=== PATIENT | male | born 1950 | race Caucasian/White ===

== ENCOUNTER 2023-10-20 08:09 | Outpatient (REF) | payer MEDICARE, SELFPAY ==
[2023-10-20 13:23] LABS: MANUAL DIFF FLAG NO
[2023-10-20 13:31] LABS: Basophils Absolute Auto 0.1 X10*3/uL (0.0-0.2); Basophils Percent Auto 1.1 % (0-2); Eosinophils Absolute Auto 0.2 X10*3/uL (0.0-0.4); Hematocrit 43.5 % (42.0-52.0); Hemoglobin 14.8 g/dl (14.0-18.0); Imm Gran Abs Auto 0.01 X10*3/uL (0.00-0.03); Imm Gran Pct Auto 0.2 % (0.0-0.4); Lymphocytes Absolute Auto 1.4 X10*3/uL (1.2-4.9); Lymphocytes Percent Auto 24.5 % (20-40); Mean Corpuscular Hemoglobin 33.5 pg (27.0-33.0); Mean Corpuscular Volume 98.4 fL (80.0-98.0); Mean Platelet Volume 9.9 fL (9.4-12.4); Monocytes Absolute Auto 0.6 X10*3/uL (0.1-1.2); Monocytes Percent Auto 11.3 % (2-11); Neutrophils Absolute Auto 3.4 x10*3/uL (2.0-8.3); Neutrophils Percent Auto 59.9 % (45-73); Platelet Count 185 X10*3/uL (160-400); Red Blood Count 4.42 X10*6/uL (4.60-5.80); Red Cell Distribution Width 12.6 % (11.0-16.0); White Blood Count 5.7 X10*3/uL (4.8-10.8)
[2023-10-20 14:04] LABS: Alanine Aminotransferase 30 U/L (0-40); Albumin Level 4.2 g/dL (3.5-5.0); Alkaline Phosphatase 72 U/L (39-117); Anion Gap 11 (12-20); Aspartate Amino Transferase 31 U/L (5-37); Bilirubin Total 0.5 mg/dL (0.0-1.0); Blood Urea Nitrogen 12 mg/dL (9-16); Calcium 8.9 mg/dL (8.4-10.2); Carbon Dioxide 28 mmol/L (22-29); Chloride 104 mmol/L (96-108); Cholesterol 97 mg/dL (<200); Estimated Glomerular Filt Rate > 60; Glucose Random 92 mg/dL (60-115); HDL Cholesterol 39 mg/dL (>40); LDL Cholesterol Calculated 51 mg/dL (<100); Potassium 5.1 mmol/L (3.3-5.1); Sodium 138 mmol/L (135-145); Total Protein 7.1 g/dL (6.5-8.0); Triglycerides 38 mg/dL (<150)
[2023-10-20 14:15] LABS: Prostate Specific Antigen 2.69 ng/mL (<0.05-4.0)
== END 2023-10-20 08:10 | disposition home or self-care (01) ==
LOC: HO.MANLDS 08:09
PROVIDERS: Visit Provider Physician Assistant
DX: E78.2 Mixed hyperlipidemia (principal); Z12.5 Encounter for screening for malignant neoplasm of prostate
CPT/HCPCS: 36415; 80053; 80061; 84153; 85025

== ENCOUNTER 2024-04-08 07:33 | Outpatient (REF) | payer MEDICARE, SELFPAY ==
[2024-04-08 13:40] LABS: Cholesterol 125 mg/dL (<200); HDL Cholesterol 34 mg/dL (>40); LDL Cholesterol Calculated 69 mg/dL (<100); Triglycerides 113 mg/dL (<150)
== END 2024-04-08 07:34 | disposition home or self-care (01) ==
LOC: HO.MANLDS 07:33
PROVIDERS: PCP Internal Medicine; Visit Provider Internal Medicine
DX: I25.10 Atherosclerotic heart disease of native coronary artery without angina pectoris (principal)
CPT/HCPCS: 36415; 80061

== ENCOUNTER 2024-10-02 09:22 | Outpatient (REF) | payer MEDICARE, SELFPAY ==
--- OUTSIDE RECORDS SUMMARY | 2024-10-02 09:50 | XMS_ITS ---
Author Name [facility] Address [address] [place] [address] Care Team Providers Care Software Licensing Analyst Name Role Phone RACHELE RODRIGUEZ Primary Care Provider Unavailab le Insurance Providers: All historical and current Section Date Range: From patient's date of to the date document was created. This section includes the names of all active insurance providers for the patient. Insurance Provider Type of Coverage Plan Name Start of Policy Coverage End of Policy Coverage Group Number Member ID Insurance Provider's Telephone Number Policy Gutierrez's Name Patient's Relationship to Policy Gutierrez MADALYN [facility] (WNR) MEDICARE ADVANTAGE MCR ([facility]) Aug 28, 2018 [id number] GERSON BRIGGS PATIENT [facility] (WNR) MEDICARE ADVANTAGE MCR (WNR) Aug 28, 2018 [id number] GERSON BRIGGS PATIENT Selected Encounter This section includes the information on record at [place] for the Encounter. Date/Time Encounter Type Encounter Description Reason Provider Source May 22, 2024 10:00 AM COMPRE OPH EXAM EST PT 1/> OPTOMETRY ICD-10-CM H34.212 Partial retinal artery occlusion, left eye MERDILSHAD,MARLIN B IHE Encounter Template Text not used by VA Assessments - Encounter Diagnoses This section includes the primary and secondary diagnoses documented for the Encounter. Date/Time Primary/Secondary Diagnosis Diagnosis Name Provider Source May 22, 2024 02:30 PM PRIMARY Partial retinal artery occlusion, left eye MARLIN MARIN [facility] May 22, 2024 02:30 PM SECONDARY Presence of intraocular lens [facility] May 22, 2024 02:30 PM SECONDARY Regular astigmatism, bilateral MARLIN MARIN [facility] Plan of Treatment: Future Appointments (+ 6 months) and Future Tests (+/- 45 days) The Plan of Treatment section includes future care activities for the [facility] This section includes future appointments and future orders which are active, pending or scheduled. Future Appointments This section includes appointments that were scheduled to occur 6 months from the date of the Encounter, up to a maximum of 20 appointments. The data comes from all [place] treatment facilities. Appointment Date/Time Appointment Type Appointme nt Facility Name Jun 25, 2024 09:30 AM AMBULATORY - MEDICINE [facility] Jul 31, 2024 08:00 AM AMBULATORY - MEDICINE [facility] Social History: Smoking Status (Most current) and Tobacco Use (All prior to encounter date) This section includes the most current, and the historical, smoking and tobacco- related health factors from the VA facility where the Encounter took place. Current Smoking Status This section includes the most current smoking, or tobacco-related health factor, from the VA facility where the Encounter took place. Date/Time Current Smoking Status Comment Facility Sep 19, 2017 10:41 AM QUIT TOBACCO USE > 7 YEARS AGO quit > 20 yrs ago [facility] Encounter Notes: All associated encounter notes This section contains the clinical notes associated to the Encounter. Date/Time Encounter Note(s) Provider Source May 22, 2024 07:15 AM OPTOMETRY NOTE: LOCAL TITLE: OPTOMETRY NOTE STANDARD TITLE: OPTOMETRY NOTE DATE OF NOTE: MAY 22, 2024@07:15 ENTRY DATE: MAY 22, 2024@07:15:30 AUTHOR: SRIDEVI GRIMM COSIGNER: MARLIN MARIN URGENCY: STATUS: COMPLETED OPTOMETRY NOTE Has ADDENDA Active problems - Computerized Problem List is the source for the followin. GERD - Gastro-Esophageal Reflux Disease ([facility] [id number]) 2. Family history of malignant melanoma 3. Nephrolithiasis 4. Obstructive sleep apnea syndrome 5. Adult screening status 6. Hyperlipidemia 7. HTN - Hypertension ([facility] [id number]) 8. Arthralgia of hip 9. Cervicalgia 10. Arthralgia of the hand 11. Old myocardial infarction 12. Chronic back pain 13. Posttraumatic stress disorder 14. History of artificial joint 15. Under care of multiple providers 16. Patient requires hospitalization 17. History of surgery 18. Rosacea Active Outpatient Medications (including Supplies): Active Outpatient Medications Status 1) ATORVASTATIN CALCIUM 80MG TAB TAKE ONE TABLET BY ACTIVE MOUTH ONCE DAILY 2) EZETIMIBE 10MG TAB TAKE ONE TABLET BY MOUTH ONCE ACTIVE DAILY TO LOWER CHOLESTEROL 3) KETOROLAC TROMETHAMINE 0.5% OPH SOLN INSTILL 1 DROP ACTIVE INTO THE AFFECTED EYE(S) THREE TIMES A DAY START 2 DAYS PRIOR TO SURGERY. 4) METOPROLOL SUCCINATE 100MG SA TAB TAKE ONE TABLET BY ACTIVE MOUTH ONCE DAILY FOR BLOOD PRESSURE/HEART 5) VALSARTAN 320MG TAB TAKE ONE TABLET BY MOUTH EVERY ACTIVE MORNING Allergies: PENICILLIN, PLAVIX All medications including those prescribed by outside VA's, community providers, and all OTC meds were reviewed and reconciled with patient to the best of their abilities. 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 Trace ERM OU 3. RE OU Ocular Medications: None (-) Pain: (-) SMITH: (-) Diplopia: (-) Flashes: (-) Floaters: (-) Amaurosis Fugax/Tia's: (-) Eye Injury: (+) Eye Surgery: CE with PCIOL OU (-) TBI FOHx: (-) Glaucoma/ARMD/Blindness VITALS (most recent, as listed in the electronic record): B/P: 158/83 (05/17/2023 14:13) Pulse: 71 (05/17/2023 14:13) Temperature: 98 F [36.7 C] (05/17/2023 14:13) Weight: 197.2 lb [89.45 kg] (05/17/2023 14:13) Height: 74 in [188.0 cm] (05/17/2023 14:14) BMI: BMI: 25.4 PERTINENT LABS: HEMOGLOBIN A1C TREND Collection DT Spec HGBA1c 05/12/2023 08:00 BLOOD 5.3 05/25/2021 08:23 BLOOD 5.2 05/06/2020 10:07 BLOOD 5.6 03/14/2019 09:25 BLOOD 5.4 (+) Smoker/Length of Time/PPD: smoked for 15yrs, quit when he was 29 Current Rx after CE OD: -1.00-0.25 x160 OS: Uneeda-0.75 x085 Add: +1.50 DVA ( )sc ( x )cc - phoropter OD: 20/20-2 OS: 20/20 Pupils: PERRL (-)APD EOMs: SAFE OU, (-)Pain/Diplopia CVF (facial, peripheral): FTFC OU Subjective Refraction: OD: -0.75-0.25 x160 20/20 OS: Uneeda-0.75 x085 20/20 Add: +1.50 20/20 All the above performed by student, reviewed by attending Anterior segment: Performed by student, repeated by attending * Lids: Dermatochalasis OU Conj: white and quiet OU Cornea: clear AC: D&Q OU Angles: 4x4 OU Iris: flat and clear Lens: PCIOL OU (undilated view) Tonometry: Performed by student, reviewed by attending * [x ] GAT [ ] iCare OD 15 mmHg OS 15 mmHg Time: 10:15am Pt deferred dilation today Fundus exam: Dilated: Non dilated:xxxxx Dilating Drops: 1GTT 1 % Tropicamide OU & 1GTT 2.5% Phenylephrine OU (Pt. ed. on side effects, dilation warning given and verbal consent obtained) Patient advised not to drive if they feel they have any symptoms which could affect their ability to drive safely. Patient advised not to engage in any activities which could put themselves or others at risk if they feel they have any symptoms which could affect their ability to perform those activities safely. Performed by student, repeated by attending * Vit: Clear OU C/D: 0.35 OU pink & healthy rim tissue Macula: flat and clear with trace ERM OU PPole: OD: clear OS: (+) Hollenhorst plaque at sup temp bifurcation (+) 2 intermediate drusens in PP and scattered along the arcade A/V: 2/3 Vessels: normal caliber OU Periph: Limited undilated view OU Assessment/Plan: 1. Hollenhorst plaque OS - Previously noted in 07/18/2023 - Pt denied amaurosis fugax and PCP was informed at the 1st occurance and he already had the carotid duplex done after in the past without any concerns reported by patient. - Pt. ed. on findings and told pt to call us if experiences any dimming or black-out vision in either eye - Monitor 2. Pseudophakia OU - Limited view to see if PCIOL was well-centered or clear due to small pupils on undilated exam - Pt. ed. on findings - Monitor 3.Regular astigmatism OU - Pt. ed. on todays findings - No glasses ordered today - Monitor Return to Clinic 1yr or earlier PRN for CEE /es/ SRIDEVI ISI GRIMM OPTOMETRY STUDENT Signed: 05/22/2024 12:19 /es/ MARLIN MARIN OD Rn Internal Medicine Cosigned: 05/22/2024 14:30 05/22/2024 ADDENDUM STATUS: COMPLETED The optometry internal revenue service agent participated in this exam, I saw this [place] in conjunction with the optometry student. The entrance tests and refraction were performed by the student and reviewed by me. I personally met with the patient, confirmed the history, complaints and the student's findings, and performed slit lamp and fundus evaluation as indicated. I reviewed and agree with the stated findings, assessment and plan. I have added/edited the documentation to reflect my exam findings and changes to the assessment and plan. patient s/p CE OU and pleased with results. Still has a hollenhorst plaque superior arcade OS as bifurcation - stable to last description without signs of occlusion or ischemia. Pt ed on findings. He reports telling his community professional housing consultant about it who did not feel additional testing was indicated. Pt ed on amaurosis fugax and to seek care immediately if occur. patient offered and declined printed medication list Medication Reconciliation: Outpatient: Has the patient been taking medications as documented in the EMLR? YES: The patient has been taking medications as documented in the EMLR. Essential Medication List for Review used to complete this medication reconciliation. INCLUDED IN THIS LIST: Alphabetical list of active outpatient prescriptions dispensed from this VA (local) and dispensed from another VA or DoD facility (remote) as well as inpatient orders (local, pending and active), local clinic medications, locally documented non-VA medications, and local prescriptions that have or been discontinued in the past 90 days. - All changes in medications, including all non-VA/Herbal/OTC medications were entered into CPRS. - If there were any medications the patient should no longer take, they were discontinued. - The patient/caregiver was instructed to update this list, discard old lists, and take this list to the next appointment, whether with a VA or non-VA provider. JLV Link Data on this list may not be complete. Please check JLV. Allergies/ADRs (Tool #5) FACILITY ALLERGY/ADR -------- No Remote Allergy/ADR Data available for this patient [facility] PENICILLIN [facility] PLAVIX Med Recon Wu (Tool #1) INCLUDED IN THIS LIST: Alphabetical list of active outpatient prescriptions dispensed from this [place] (local) and dispensed from another [place] or [facility] facility (remote) as well as inpatient orders (local pending and active), local clinic medications, locally documented non-VA medications, and local prescriptions that have or been discontinued in the past 90 days. Non-VA Meds Last Documented On: Sep 19, 2017 NOTE The display of VA prescriptions dispensed from another [place] or [facility] facility (remote) is limited to active outpatient prescription entries matched to National Drug File at the originating site and may not include some items such as investigational drugs, compounds, etc. NOT INCLUDED IN THIS LIST: Medications self-entered by the patient into personal health records (i.e. [facility]) are NOT included in this list. Non-VA medications documented outside this [place], remote inpatient orders (regardless of status) and remote clinic medications are NOT included in this list. The patient and provider must always discuss medications the patient is taking, regardless of where the medication was dispensed or obtained. OUTPT ATORVASTATIN CALCIUM 80MG TAB (Status = ) TAKE ONE TABLET BY MOUTH ONCE DAILY Rx# [id number] Last Released: 02/01/24 Qty/Days Supply: Rx Expiration Date: 03/22/24 Refills Remainin OUTPT ATORVASTATIN CALCIUM 80MG TAB (Status = Active) TAKE ONE TABLET BY MOUTH ONCE DAILY Rx# [id number] Last Released: 04/30/24 Qty/Days Supply: Rx Expiration Date: 06/25/24 Refills Remainin OUTPT EZETIMIBE 10MG TAB (Status = Active) TAKE ONE TABLET BY MOUTH ONCE DAILY TO LOWER CHOLESTEROL Rx# [id number] Last Released: 11/02/23 Qty/Days Supply: Rx Expiration Date: 10/31/24 Refills Remainin Indication: FOR HIGH CHOLESTEROL OUTPT KETOROLAC TROMETHAMINE 0.5% OPH SOLN (Status = Active) INSTILL 1 DROP INTO THE AFFECTED EYE(S) THREE TIMES A DAY START 2 DAYS PRIOR TO SURGERY. Rx# [id number] Last Released: 01/26/24 Qty/Days Supply: 06/26 Rx Expiration Date: 11/02/24 Refills Remainin OUTPT METOPROLOL SUCCINATE 100MG SA TAB (Status = ) TAKE ONE TABLET BY MOUTH ONCE DAILY FOR BLOOD PRESSURE/HEART Rx# [id number] Last Released: 01/26/24 Qty/Days Supply: Rx Expiration Date: 03/22/24 Refills Remainin OUTPT METOPROLOL SUCCINATE 100MG SA TAB (Status = Active) TAKE ONE TABLET BY MOUTH ONCE DAILY FOR BLOOD PRESSURE/HEART Rx# [id number] Last Released: 04/16/24 Qty/Days Supply: Rx Expiration Date: 06/25/24 Refills Remainin OUTPT SILDENAFIL CITRATE 100MG TAB (Status = ) TAKE ONE TABLET BY MOUTH ONCE DAILY NEEDED FOR ERECTILE DYSFUNCTION TAKE 1 HOUR PRIOR TO SEXUAL ACTIVITY Rx# [id number] Last Released: 03/25/24 Qty/Days Supply: 02/24 Rx Expiration Date: 05/17/24 Refills Remainin Indication: FOR ERECTILE DYSFUNCTION OUTPT VALSARTAN 320MG TAB (Status = ) TAKE ONE TABLET BY MOUTH EVERY MORNING Rx# [id number] Last Released: 12/28/23 Qty/Days Supply: Rx Expiration Date: 03/22/24 Refills Remainin OUTPT VALSARTAN 320MG TAB (Status = Active) TAKE ONE TABLET BY MOUTH EVERY MORNING Rx# [id number] Last Released: 03/28/24 Qty/Days Supply: Rx Expiration Date: 06/25/24 Refills Remainin SUPPLIES /yumi/ MARLIN MARIN OD Rn Internal Medicine Signed: 05/22/2024 14:33 SRIDEVI GRIMM CNTRL [facility]
--- OUTSIDE RECORDS SUMMARY | 2024-10-02 09:50 | XMS_ITS | Continuity of Care Document ---
Author Name [facility] Organization [facility] Care Team Providers Care Equestrian Trainer Name Role Phone [facility] Unavailable Unavailable Problems Combined list of problems from Department of Defense and Veterans Affairs facilities. It does not include entries that were removed or entered in error. Problem Status Onset Date Problem Type Date of Resolution Comments Source Adult screening status Active Condition Aug 07, 2019 Entered By: DARRYL ALVARENGA Comment: Colonoscopy December 2018; repeat in 10 years [facility] Arthralgia of hip Active Condition No 2017 Entered By: DARRYL ALVARENGA Comment: s/p L THR Dr. Ramey, [facility] 07/18/18 [place] [facility] [place] [facility] Arthralgia of the hand Active Condition May 01, 2018 Entered By: DARRYL ALVARENGA Comment: pending x-rays [facility] Cervicalgia Active Condition May 01, 2018 Entered By: DARRYL ALVARENGA Comment: started 04/2018 on gabapentin and flexeril (per Rheum rec) [facility] Chronic back pain Active Condition No 2019 Entered By: DARRYL ALVARENGA Comment: pending imaging / PT eval (Jun 2020) [facility] Family history of malignant melanoma Active Condition Jul 15 020 Entered By: DARRYL ALVARENGA Comment: sister, passed with wide metastatic diseaseJul 15, 2020 Entered By: DARRYL ALVARENGA Comment: referred for skin survey [facility] GERD - Gastro-Esophageal Reflux Disease (SCT [id number]) Active Condition Oct 13, 2020 Entered By: DARRYL ALVARENGA Comment: followed by [facility] Lane GI [facility] History of artificial joint Active Condition Omari 30, 201 8 Entered By: NAINA MYERS Comment: R hip prothesis [facility] History of surgery Active Condition J an 2017 Entered By: NABILA HERNANDEZ Comment: cardiac- stent ( distal RCA) [facility] HTN - Hypertension (SCT [id number]) Active Condition Jun 28, 2021 Entered By: DARRYL ALVARENGA Comment: Echo 04/2021 Normal LV, EF 45-50%; mild global hypokinesis [facility] Hyperlipidemia Active Condition [facility] Nephrolithiasis Active Condition [facility] [place] Obstructive sleep apnea syndrome Active Condition Jul 15, 2020 Entered By: DARRYL ALVARENGA Comment: on CPAP [facility] Old myocardial infarction Active Condition January 18, 2019 Entered By: DARRYL ALVARENGA Comment: echo 05/17/18 ([facility]): ef 45-50%, basal lateral akinesis, trace AR [facility] Patient requires hospitalization Active Condition Sep 19, 2017 Entered By: NABILA HERNANDEZ Comment: [facility]- 2006 ( cardiac 04/2007) [facility] Posttraumatic stress disorder Active Condition [facility] Rosacea Active Condition [facility] Under care of multiple providers Active Condition Sep 19 018 Entered By: NABILA HERNANDEZ Comment: non [place] - DR KENT ( transfer from dr Allan Martinez 2017 Entered By: NABILA HERNANDEZ Comment: 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 Francisco Watts, RheumatologySe 2017 Entered By: DARRYL ALVARENGA Comment: GHULAM Mack (ENVIRONMENTAL SYSTEMS COORDINATOR) for hipSep 2017 Entered By: DARRYL ALVARENGA Comment: GHULAM Melendez for cervicalgia [facility] Diagnosis: ICD-10-CM Z12.11 Encounter for screening for malignant neoplasm of colon Active Diagnosis [place] Diagnosis: ICD-10-CM H34.212 Partial retinal artery occlusion, left eye Active Diagnosis [facility] Diagnosis: ICD-10-CM G47.33 Obstructive sleep apnea (adult) (pediatric) Active Diagnosis [facility] [place] [facility] Diagnosis: ICD-10-CM G47.39 Other sleep apnea Active Diagnosis [facility] Diagnosis: ICD-10-CM Z46.0 Encounter for fit/adjst of spectacles and contact lenses Active Diagnosis [facility] Diagnosis: ICD-10-CM Z46.1 Encounter for fitting and adjustment of hearing aid Active Diagnosis [facility] Diagnosis: ICD-10-CM H25.813 Combined forms of age-related cataract, bilateral Active Diagnosis [facility] Diagnosis: ICD-10-CM H90.3 Sensorineural hearing loss, bilateral Active Diagnosis [facility] Diagnosis: ICD-10-CM I10 Essential (primary) hypertension Active Diagnosis [place] Medications Combined list of outpatient medications from Department of Defense and Veterans Affairs facilities.Medications provided include 1) outpatient medications from the last 15 months, and 2) patient-reported medications. Medication Details Route Status Patient Instructions Prescription Expires Prescription Number Last Dispense Date Ordering Provider Order Date Order Qty Source ATORVASTATI N [place] 80MG TAB TAKE ONE TABLET BY MOUTH ONCE DAILY ORAL 09/29/2024 [id number] KELLEY CASTILLO 2023 90 [facility] [place] ATORVASTATI N CA 80MG TAB TAKE ONE TABLET BY MOUTH ONCE DAILY ORAL 06/25/2024 [id number] KELLEY CASTILLO 2023 90 [facility] [place] ATORVASTATI N CA 80MG TAB TAKE ONE TABLET BY MOUTH ONCE DAILY ORAL 03/22/2024 [id number] MATEO SCHOFIELD 2022 90 [facility] [place] EZETIMIBE 10MG TAB TAKE ONE TABLET BY MOUTH ONCE DAILY TO LOWER CHOLESTE ROL ORAL ACTIVE 10/31/2024 [id number] LYLE, APOLINARI O 2023 90 [place] EZETIMIBE 10MG TAB TAKE ONE TABLET BY MOUTH ONCE DAILY TO LOWER CHOLESTE ROL ORAL DISCONT INUED 05/17/2024 [id number] LYLE, APOLINARI O 2022 90 [place] KETOROLAC TROMETHAMIN E 0.5% SOLN,OPH INSTILL 1 DROP INTO THE AFFECTED EYE(S) THREE TIMES A DAY START 2 DAYS PRIOR TO SURGERY. OPHTHA LMIC ACTIVE 11/02/2024 [id number] HORACE CHURCH 2023 10 [place] METOPROLOL SUCCINATE 100MG TAB,SA TAKE ONE TABLET BY MOUTH ONCE DAILY FOR BLOOD PRESSURE /HEART ORAL ACTIVE 07/02/2025 [id number] KELLEY CASTILLO 2023 90 [place] METOPROLOL SUCCINATE 100MG TAB,SA TAKE ONE TABLET BY MOUTH ONCE DAILY FOR BLOOD PRESSURE /HEART ORAL 06/25/2024 [id number] KELLEY CASTILLO 2023 90 [place] METOPROLOL SUCCINATE 100MG TAB,SA TAKE ONE TABLET BY MOUTH ONCE DAILY FOR BLOOD PRESSURE /HEART ORAL 03/22/2024 [id number] MATEO SCHOFIELD 2022 90 [place] SILDENAFIL CITRATE 100MG TAB TAKE ONE TABLET BY MOUTH ONCE DAILY NEEDED FOR ERECTILE DYSFUNCT ION TAKE 1 HOUR PRIOR TO SEXUAL ACTIVITY ORAL 05/17/2024 [id number] LYLEDEANLINARI O 2022 6 [place] VALSARTAN 320MG TAB TAKE ONE TABLET BY MOUTH ONCE DAILY ORAL SUSPEND ED 09/28/2025 [id number] KELLEY CASTILLO 2024 90 [facility] (631[facility]) VALSARTAN 320MG TAB TAKE ONE TABLET BY MOUTH ONCE DAILY ORAL DISCONT INUED 09/29/2024 [id number] KELLEY CASTILLO 2023 90 [place] VALSARTAN 320MG TAB TAKE ONE TABLET BY MOUTH EVERY MORNING ORAL 06/25/2024 [id number] KELLEY CASTILLO 2023 90 [facility] [place] VALSARTAN 320MG TAB TAKE ONE TABLET BY MOUTH EVERY MORNING ORAL 03/22/2024 [id number] MATEO SCHOFIELD 2022 90 [facility] [place] Allergies, Adverse Reactions, Alerts Combined list of allergies from Department of Defense and Veterans Affairs facilities. It does not include entries that were removed or entered in error. Substance Category Reaction Severity Reaction type Status Date Reported Comments Source PENICILLIN Propensity to adverse reactions to drug (finding) [facility] Propensity to adverse reactions to drug (finding) Urticaria active 8 [facility] [place] [facility] Immunizations Combined list of available immunizations from the Department of Defense and Veterans Affairs facilities. Immunization Series Date Given Administered By Site Reaction Lot Number CVX Code Drug Butadiene Converter Utility Operator Status Comments Source INFLUENZA, HIGH-DOSE, QUADRIVALENT 2022 RAZ MORALES RIGHT DELTO ID [id number] A 197 complet ed [facility] [place] COVID-19 (MODERNA), MRNA, LNP-S, BIVALENT BOOSTER, PF, 50 MCG/0.5 ML OR 25MCG/0.25 ML DOSE 1 2021 229 complet ed MOD; [id number]; 3 [facility] [place] INFLUENZA VACCINE, QUADRIVALENT, ADJUVANTED 2021 205 complet ed [facility] [place] COVID-19 (MODERNA), MRNA, LNP-S, PF, 100 MCG OR 50 MCG DOSE 3 2020 207 complet ed MOD; [id number]; 2 [facility] [place] INFLUENZA VACCINE, QUADRIVALENT, ADJUVANTED 2020 205 complet ed [place] TDAP 2020 115 complet ed [facility] [place] COVID-19 (MODERNA), MRNA, LNP-S, PF, 100 MCG/0.5 ML DOSE 2 2020 207 complet ed MOD; [id number]; 1 [place] COVID-19 (MODERNA), MRNA, LNP-S, PF, 100 MCG/0.5 ML DOSE 1 2020 207 complet ed MOD; [id number]; 1 [place] ZOSTER RECOMBINANT 2 2019 187 complet ed [place] ZOSTER RECOMBINANT 1 2019 187 complet ed [facility] Pharmacy Rx Receipts received. [facility] Rx: [id number] prescribe dawson Fuchs an [facility] INFLUENZA, UNSPECIFIED FORMULATION 2019 88 complet ed [facility] INFLUENZA, INJECTABLE, QUADRIVALENT, PRESERVATIVE FREE 2018 150 complet ed Site: Left Deltoid [place] INFLUENZA, INJECTABLE, QUADRIVALENT 2017 158 complet ed Site: Left Deltoid [place] PNEUMOCOCCAL POLYSACCHARID E PPV23 2017 33 complet ed [place] INFLUENZA, SEASONAL, INJECTABLE 2016 141 complet ed [facility] [place] [facility] [facility] PNEUMOCOCCAL CONJUGATE PCV 13 2014 133 complet ed [facility] [address] [facility] [place] [facility] Results Combined list of recent chemistry, hematology and other laboratory results from Department of Defense and Veterans Affairs, ranging from 15 months to all on record, depending upon the facility. Order Name Results Value Reference Range Date Interpretation Specimen Comments Source LIPID PANEL FASTING CHOLESTERO L [MASS/VOLU ME] IN SERUM OR PLASMA 141 mg/dL 05/12 Specimen Type: SERUM No comment entered. Ordering Provider: ARCADIO ALVARENGA Report Released Date/Time: May 08, 2023 08:52 AM Reporting Lab: [facility] [place] [facility] [address] [address] Performing Lab: [facility] Fortress TechnologiesCHUSEEDGEWO[facility] STATE [facility] [address] [address] [facility] [place] [facility] LIPID PANEL FASTING TRIGLYCERI DE [MASS/VOLU ME] IN SERUM OR PLASMA 107 mg/dL 0 - 150 05/12 Specimen Type: SERUM No comment entered. Ordering Provider: LYLE,AP OLINARIO Report Released Date/Time: May 08, 2023 08:52 AM Reporting Lab: [facility] [place] [facility] [address] [address] Performing Lab: [facility] [place] [facility] [address] [address] [facility] [place] [facility] LIPID PANEL FASTING CHOLESTERO L IN LDL [MASS/VOLU ME] IN SERUM OR PLASMA BY CALCLUIS FELIPE N 84 mg/dL 0 - 129 05/12 Specimen Type: SERUM No comment entered. Ordering Provider: ARCADIO ALVARENGA Report Released Date/Time: May 08, 2023 08:52 AM Reporting Lab: [facility] [place] [facility] [address] [address] Performing Lab: [facility] [place] [facility] [address] [address] [place] [facility] [place] [facility] LIPID PANEL FASTING CHOLESTERO L.TOTAL/CH OLESTEROL IN HDL [MASS RATIO] IN SERUM OR PLASMA 3.9 05/12 Specimen Type: SERUM No comment entered. Ordering Provider: ARCADIO ALVARENGA Report Released Date/Time: May 08, 2023 08:52 AM Reporting Lab: [facility] [place] [facility] [address] [address] Performing Lab: [facility] [place] [facility] [address] [address] [facility] [place] [facility] LIPID PANEL FASTING CHOLESTERO L IN HDL [MASS/VOLU ME] IN SERUM OR PLASMA 36 mg/dL 40 - 60 05/12 L Specimen Type: SERUM No comment entered. Ordering Provider: ARCADIO ALVARENGA Report Released Date/Time: May 08, 2023 08:52 AM Reporting Lab: [facility] [place] [facility] [address] [address] Performing Lab: [facility] [place] [facility] [address] [address] [facility] [place] [facility] LIVER FUNCTION PROTEIN [MASS/VOLU ME] IN SERUM OR PLASMA 7.1 g/dL 6.0 - 8.3 05/12 Specimen Type: SERUM No comment entered. Ordering Provider: ARCADIO ALVARENGA Report Released Date/Time: May 08, 2023 08:52 AM Reporting Lab: [facility] [place] [facility] [address] [address] Performing Lab: [place] [facility] [address] [address] [facility]ENUSE [facility] LIVER FUNCTION ALBUMIN [MASS/VOLU ME] IN SERUM OR PLASMA 4.2 g/dL 3.5 - 5.0 05/12 Specimen Type: SERUM No comment entered. Ordering Provider: ARCADIO ALVARENGA Report Released Date/Time: May 08, 2023 08:52 AM Reporting Lab: [facility] [place] [address] [address] Performing Lab: [place] [facility] [address] [address] [facility] LIVER FUNCTION ALKALINE PHOSPHATAS E [ENZYMATIC ACTIVITY/V OLUME] IN SERUM OR PLASMA 72 U/L 40 - 150 05/12 Specimen Type: SERUM No comment entered. Ordering Provider: ARCADIO ALVARENGA Report Released Date/Time: May 08, 2023 08:52 AM Reporting Lab: [place] [facility] [place] [address] [address] Performing Lab: [place] [facility] [address] [address] [facility] LIVER FUNCTION ASPARTATE AMINOTRANS FERASE [ENZYMATIC ACTIVITY/V OLUME] IN SERUM OR PLASMA 25 U/L 5 - 34 05/12 Specimen Type: SERUM No comment entered. Ordering Provider: ARCADIO ALVARENGA Report Released Date/Time: May 08, 2023 08:52 AM Reporting Lab: [facility] [place] [facility] [address] [address] Performing Lab: [place] [facility] [address] [address] [place] [facility] LIVER FUNCTION ALANINE AMINOTRANS FERASE [ENZYMATIC ACTIVITY/V OLUME] IN SERUM OR PLASMA 26 U/L 05/12 Specimen Type: SERUM No comment entered. Ordering Provider: ARCADIO ALVARENGA Report Released Date/Time: May 08, 2023 08:52 AM Reporting Lab: [facility]OTH[facility]TRN [facility] CHILDRENUSE[address] [address] Performing Lab: [facility] TRN [facility]DRENUSE[address] [address] [facility]ITALN [facility] LIVER FUNCTION BILIRUBIN. TOTAL [MASS/VOLU ME] IN SERUM OR PLASMA 0.5 mg/dL 0.2 - 1.2 05/12 Specimen Type: SERUM No comment entered. Ordering Provider: ARCADIO ALVARENGA Report Released Date/Time: May 08, 2023 08:52 AM Reporting Lab: [facility]ILDRENUSE[address] [address] Performing Lab: [facility]N [facility] CHILDRENUSE[address] [address] [facility] BASIC METABOLI C PANEL (fasting ) UREA NITROGEN [MASS/VOLU ME] IN SERUM OR PLASMA 17 mg/dL 7 - 25 05/12 Specimen Type: SERUM No comment entered. Ordering Provider: ARACDIO ALVARENGA Report Released Date/Time: May 08, 2023 08:52 AM Reporting Lab: [facility] DOTHANTRN MASSUSE[address] [address] Performing Lab: [facility]N [facility]DRENUSE[address] [address] [facility]ITALN [facility] BASIC METABOLI C PANEL (fasting ) GLUCOSE [MASS/VOLU ME] IN SERUM OR PLASMA 105 mg/dL 65 - 100 05/12 H Specimen Type: SERUM No comment entered. Ordering Provider: ARCADIO ALVARENGA Report Released Date/Time: May 08, 2023 08:52 AM Reporting Lab: [facility]OTHANTRN [facility] CHILDRENUSE[address] [address] Performing Lab: [place] [facility] [facility] [address] [address] [facility] [place] [facility] BASIC METABOLI C PANEL (fasting ) SODIUM [MOLES/VOL UME] IN SERUM OR PLASMA 139 mmol/L 135 - 145 05/12 Specimen Type: SERUM No comment entered. Ordering Provider: ARCADIO ALVARENGA Report Released Date/Time: May 08, 2023 08:52 AM Reporting Lab: [place] [facility] [place] [facility] [address] [address] Performing Lab: [place] [facility] [facility] [facility] [address] [address] [facility] BASIC METABOLI C PANEL (fasting ) POTASSIUM [MOLES/VOL UME] IN SERUM OR PLASMA 4.4 mmol/L 3.5 - 5.0 05/12 Specimen Type: SERUM No comment entered. Ordering Provider: ARCADIO ALVARENGA Report Released Date/Time: May 08, 2023 08:52 AM Reporting Lab: [facility] [place] [facility] [address] [address] Performing Lab: [place] [facility] [facility] [facility] [address] [address] [facility]EN[facility] BASIC METABOLI C PANEL (fasting ) CHLORIDE [MOLES/VOL UME] IN SERUM OR PLASMA 104 mmol/L 100 - 110 05/12 Specimen Type: SERUM No comment entered. Ordering Provider: ARCADIO ALVARENGA Report Released Date/Time: May 08, 2023 08:52 AM Reporting Lab: [place] [facility] [place] [facility] [address] [address] Performing Lab: [place] [facility] [facility] [address] [address] [facility]ENUSE [facility] BASIC METABOLI C PANEL (fasting ) CARBON DIOXIDE, TOTAL [MOLES/VOL UME] IN SERUM OR PLASMA 26 meq/L 20 - 30 05/12 Specimen Type: SERUM No comment entered. Ordering Provider: ARCADIO ALVARENGA Report Released Date/Time: May 08, 2023 08:52 AM Reporting Lab: [address] [address] Performing Lab: [address] [address] [facility] BASIC METABOLI C PANEL (fasting ) CREATININE [MASS/VOLU ME] IN SERUM OR PLASMA 0.96 mg/dL 0.50 - 1.40 05/12 Specimen Type: SERUM No comment entered. Ordering Provider: ARCADIO ALVARENGA Report Released Date/Time: May 08, 2023 08:52 AM Reporting Lab: [address] [address] Performing Lab: [address] [address] [facility] BASIC METABOLI C PANEL (fasting ) GLOMERULAR FILTRATION RATE/1.73 SQ M.PREDICTE D [VOLUME RATE/AREA] IN SERUM, PLASMA OR BLOOD BY CREATININE -BASED FORMULA (CKD-EPI 2020) 83 mL/min 60 05/12 Specimen Type: SERUM No comment entered. Ordering Provider: ARCADIO ALVARENGA Report Released Date/Time: May 08, 2023 08:52 AM Reporting Lab: [address] [address] Performing Lab: [address] [address] [facility] HEMOGLOB IN A1C PANEL HEMOGLOBIN A1C/HEMOGL OBIN.TOTAL IN BLOOD BY HPLC 5.3 4.0 - 5.6 05/12 Specimen Type: BLOOD Comment: Values obtained from A1C measurement s can vary. For atypical A1C assays, a reported value of 7.0 could actually be between 6.72 and 7.28 if measured by a reference method. A reported value of 9.0 could actually be between 8.73 and 9.27. Ref: http://www. ngsp.org/[place] Pdata.asp Ordering Provider: ARCADIO ALVARENGA Report Released Date/Time: May 08, 2023 08:52 AM Reporting Lab: [facility] [place] [facility] [address] [address] Performing Lab: [facility] [place] [facility] [address] [address] [facility] [place] [facility] TSH THYROTROPI N [UNITS/VOL UME] IN SERUM OR PLASMA 2.49 u[IU]/mL 0.35 - 5.00 05/12 Specimen Type: SERUM No comment entered. Ordering Provider: ARCADIO ALVARENGA Report Released Date/Time: May 08, 2023 08:52 AM Reporting Lab: [facility] [place] [facility] [address] [address] Performing Lab: [facility] [place] [facility] [address] [address] [facility] [place] [facility] CALCIUM CALCIUM [MASS/VOLU ME] IN SERUM OR PLASMA 8.8 mg/dL 8.5 - 10.2 05/12 Specimen Type: SERUM No comment entered. Ordering Provider: ARCADIO ALVARENGA Report Released Date/Time: May 08, 2023 08:52 AM Reporting Lab: [facility] [place] [facility] [address] [address] Performing Lab: [facility] [place] [facility] [address] [address] [facility] [place] [facility] URIC ACID URATE [MASS/VOLU ME] IN SERUM OR PLASMA 6.8 mg/dL 3.5 - 7.2 05/12 Specimen Type: SERUM No comment entered. Ordering Provider: ARCADIO ALVARENGA Report Released Date/Time: May 08, 2023 08:52 AM Reporting Lab: [facility] [place] [facility] [address] [address] Performing Lab: [facility] [place] [facility] [address] [address] [facility] [place] [facility] CBC AND DIFF (AUTO) LEUKOCYTES [#/VOLUME] IN BLOOD BY AUTOMATED COUNT 6.74 10*3/uL 4.50 - 11.00 05/12 Specimen Type: BLOOD No comment entered. Ordering Provider: ARCADIO ALVARENGA Report Released Date/Time: May 08, 2023 08:52 AM Reporting Lab: [facility] [place] [facility] [address] [address] Performing Lab: [place] [facility] [place] [facility] [address] [address] [place] [facility] [facility] CBC AND DIFF (AUTO) ERYTHROCYT ES [#/VOLUME] IN BLOOD BY AUTOMATED COUNT 4.52 10*6/uL 4.23 - 5.66 05/12 Specimen Type: BLOOD No comment entered. Ordering Provider: ARCADIO ALVARENGA Report Released Date/Time: May 08, 2023 08:52 AM Reporting Lab: [place] [facility] [place] [address] [address] Performing Lab: [place] [facility] [place] [address] [address] [facility] [place] [facility] CBC AND DIFF (AUTO) HEMOGLOBIN [MASS/VOLU ME] IN BLOOD 14.7 g/dL 12.8 - 17 05/12 Specimen Type: BLOOD No comment entered. Ordering Provider: ARCADIO ALVARENGA Report Released Date/Time: May 08, 2023 08:52 AM Reporting Lab: [place] [facility] [address] [address] Performing Lab: [place] [facility] [place] [address] [address] [facility] [place] [facility] CBC AND DIFF (AUTO) HEMATOCRIT [VOLUME FRACTION] OF BLOOD BY AUTOMATED COUNT 44.0 39.2 - 50.4 05/12 Specimen Type: BLOOD No comment entered. Ordering Provider: ARCADIO ALVARENGA Report Released Date/Time: May 08, 2023 08:52 AM Reporting Lab: [place] [facility] [place] [address] [address] Performing Lab: [place] [facility] [place] [facility] [address] [address] [place] [facility] [place] [facility] CBC AND DIFF (AUTO) MCV [ENTITIC VOLUME] BY AUTOMATED COUNT 97.3 fL 82 - 99 05/12 Specimen Type: BLOOD No comment entered. Ordering Provider: ARCADIO ALVARENGA Report Released Date/Time: May 08, 2023 08:52 AM Reporting Lab: [place] [facility] [place] [facility] [address] [address] Performing Lab: [place] [facility] [place] [facility] [address] [phone] [facility] [place] [facility] CBC AND DIFF (AUTO) MCHC [MASS/VOLU ME] BY AUTOMATED COUNT 33.4 g/dL 30.8 - 35.1 05/12 Specimen Type: BLOOD No comment entered. Ordering Provider: ARCADIO ALVARENGA Report Released Date/Time: May 08, 2023 08:52 AM Reporting Lab: [facility] [place] [facility] [address] [address] Performing Lab: [facility] [place] [facility] [address] [phone] [facility] [place] [facility] CBC AND DIFF (AUTO) PLATELETS [#/VOLUME] IN BLOOD BY AUTOMATED COUNT 192 10*3/uL 140 - 360 05/12 Specimen Type: BLOOD No comment entered. Ordering Provider: ARCADIO ALVARENGA Report Released Date/Time: May 08, 2023 08:52 AM Reporting Lab: [place] [facility] [place] [facility] [address] [address] Performing Lab: [place] [facility] [facility] [address] [address] [place] [facility] [facility] CBC AND DIFF (AUTO) ERYTHROCYT E DISTRIBUTI ON WIDTH [RATIO] BY AUTOMATED COUNT 12.2 12.0 - 16.0 05/12 Specimen Type: BLOOD No comment entered. Ordering Provider: ARCADIO ALVARENGA Report Released Date/Time: May 08, 2023 08:52 AM Reporting Lab: [facility] [place] [facility] [address] [address] Performing Lab: [facility] [place] [facility] [address] [address] [facility] [place] [facility] CBC AND DIFF (AUTO) MONOCYTES [#/VOLUME] IN BLOOD BY AUTOMATED COUNT 0.78 10*3/uL 0.30 - 1.10 05/12 Specimen Type: BLOOD No comment entered. Ordering Provider: ARCADIO ALVARENGA Report Released Date/Time: May 08, 2023 08:52 AM Reporting Lab: [facility] [place] [facility] [address] [address] Performing Lab: [facility] [place] [facility] [address] [address] [facility] [place] [facility] CBC AND DIFF (AUTO) MCH [ENTITIC MASS] BY AUTOMATED COUNT 32.5 pg 26.2 - 32.6 05/12 Specimen Type: BLOOD No comment entered. Ordering Provider: ARCADIO ALVARENGA Report Released Date/Time: May 08, 2023 08:52 AM Reporting Lab: [facility] [place] [facility] [address] [address] Performing Lab: [facility] [place] [facility] [address] [address] [place] [facility] [place] [facility] CBC AND DIFF (AUTO) NEUTROPHIL S/100 LEUKOCYTES IN BLOOD BY AUTOMATED COUNT 60.5 43.7 - 75.8 05/12 Specimen Type: BLOOD No comment entered. Ordering Provider: ARCADIO ALVARENGA Report Released Date/Time: May 08, 2023 08:52 AM Reporting Lab: [facility] [place] [facility] [address] [address] Performing Lab: [facility] [place] [facility] [address] [address] [facility] [place] [facility] CBC AND DIFF (AUTO) LYMPHOCYTE S/100 LEUKOCYTES IN BLOOD BY AUTOMATED COUNT 22.8 14.0 - 42.3 05/12 Specimen Type: BLOOD No comment entered. Ordering Provider: ARCADIO ALVARENGA Report Released Date/Time: May 08, 2023 08:52 AM Reporting Lab: [facility] [place] [facility] [address] [address] Performing Lab: [facility] [place] [facility] [address] [address] [facility] [place] [facility] CBC AND DIFF (AUTO) MONOCYTES/ 100 LEUKOCYTES IN BLOOD BY AUTOMATED COUNT 11.6 5.1 - 13.7 05/12 Specimen Type: BLOOD No comment entered. Ordering Provider: ARCADIO ALVARENGA Report Released Date/Time: May 08, 2023 08:52 AM Reporting Lab: [facility] [place] [facility] [address] [address] Performing Lab: [facility] [place] [facility] [address] [address] [facility] [place] [facility] CBC AND DIFF (AUTO) EOSINOPHIL S/100 LEUKOCYTES IN BLOOD BY AUTOMATED COUNT 2.7 0.4 - 6.8 05/12 Specimen Type: BLOOD No comment entered. Ordering Provider: ARCADIO ALVARENGA Report Released Date/Time: May 08, 2023 08:52 AM Reporting Lab: [facility] [place] [facility] [address] [address] Performing Lab: [facility] [place] [facility] [address] [address] [facility] [place] [facility] CBC AND DIFF (AUTO) BASOPHILS/ 100 LEUKOCYTES IN BLOOD BY AUTOMATED COUNT 0.9 0.1 - 2.0 05/12 Specimen Type: BLOOD No comment entered. Ordering Provider: ARCADIO ALVARENGA Report Released Date/Time: May 08, 2023 08:52 AM Reporting Lab: [facility] [place] [facility] [address] [address] Performing Lab: [facility] [place] [facility] [address] [address] [facility] [place] [facility] CBC AND DIFF (AUTO) NEUTROPHIL S [#/VOLUME] IN BLOOD BY AUTOMATED COUNT 4.08 10*3/uL 2.20 - 7.60 05/12 Specimen Type: BLOOD No comment entered. Ordering Provider: ARCADIO ALVARENGA Report Released Date/Time: May 08, 2023 08:52 AM Reporting Lab: [facility] [place] [address] [address] Performing Lab: [facility] [place] [facility] [address] [address] [place] [facility] [place] [facility] CBC AND DIFF (AUTO) LYMPHOCYTE S [#/VOLUME] IN BLOOD BY AUTOMATED COUNT 1.54 10*3/uL 1.00 - 3.20 05/12 Specimen Type: BLOOD No comment entered. Ordering Provider: ARCADIO ALVARENGA Report Released Date/Time: May 08, 2023 08:52 AM Reporting Lab: [place] [facility] [place] [address] [address] Performing Lab: [place] [facility] [place] [address] [address] [place] [facility] [facility] CBC AND DIFF (AUTO) EOSINOPHIL S [#/VOLUME] IN BLOOD BY AUTOMATED COUNT 0.18 10*3/uL 0.03 - 0.44 05/12 Specimen Type: BLOOD No comment entered. Ordering Provider: ARCADIO ALVARENGA Report Released Date/Time: May 08, 2023 08:52 AM Reporting Lab: [facility] [place] [address] [address] Performing Lab: [facility] [place] [address] [address] [facility] [place] [facility] CBC AND DIFF (AUTO) BASOPHILS [#/VOLUME] IN BLOOD BY AUTOMATED COUNT 0.06 10*3/uL 0.01 - 0.13 05/12 Specimen Type: BLOOD No comment entered. Ordering Provider: ARCADIO ALVARENGA Report Released Date/Time: May 08, 2023 08:52 AM Reporting Lab: [facility] [place] [facility] [address] [address] [facility]forming [facility]: [facility] [place] [facility] [address] [address] [facility] [place] [facility] CBC AND DIFF (AUTO) IMMATURE GRANULOCYT ES/100 LEUKOCYTES IN BLOOD BY AUTOMATED COUNT 1.5 0.0 - 0.7 05/12 H Specimen Type: BLOOD No comment entered. Ordering Provider: ARCADIO ALVARENGA Report Released Date/Time: May 08, 2023 08:52 AM Reporting Lab: [facility] [place] [facility] [address] [address] Performing Lab: [facility] [address] [address] [facility] CBC AND DIFF (AUTO) IMMATURE GRANULOCYT ES [#/VOLUME] IN BLOOD 0.10 10*3/uL 0.00 - 0.06 05/12 H Specimen Type: BLOOD No comment entered. Ordering Provider: ARCADIO ALVARENGA Report Released Date/Time: May 08, 2023 08:52 AM Reporting Lab: [facility] [place] [facility] [address] [address] Performing Lab: [facility] [address] [address] [facility] VITAMIN D (25-OH) 25-HYDROXY VITAMIN D3 [MASS/VOLU ME] IN SERUM OR PLASMA 38 ng/mL 20 - 50 05/12 Specimen Type: SERUM No comment entered. Ordering Provider: ARCADIO ALVARENGA Report Released Date/Time: May 08, 2023 08:52 AM Reporting Lab: [facility] [place] [facility] [address] [address] Performing Lab: [facility] [address] [address] [facility] URINALYS IS COLOR OF URINE Light-Ye llow 05/12 Specimen Type: URINE Comment: If Glucose = >500 and Ketones are positive, please alert the Physician. Ordering Provider: ARCADIO ALVARENGA Report Released Date/Time: May 08, 2023 08:52 AM Reporting Lab: [facility] [place] [facility] [address] [address] Performing Lab: [facility] [place] [facility] [address] [address] [facility] [place] [facility] URINALYS IS APPEARANCE OF URINE Clear 05/12 Specimen Type: URINE Comment: If Glucose = >500 and Ketones are positive, please alert the Physician. Ordering Provider: ARCADIO ALVARENGA Report Released Date/Time: May 08, 2023 08:52 AM Reporting Lab: [facility] [place] [facility] [address] [address] Performing Lab: [facility] [place] [facility] [address] [address] [facility] [place] [facility] URINALYS IS GLUCOSE [MASS/VOLU ME] IN URINE NEGATIVE mg/dL 05/12 Specimen Type: URINE Comment: If Glucose = >500 and Ketones are positive, please alert the Physician. Ordering Provider: ARCADIO ALVARENGA Report Released Date/Time: May 08, 2023 08:52 AM Reporting Lab: [facility] [place] [facility] [address] [address] Performing Lab: [facility] [place] [facility] [address] [address] [facility] [place] [facility] URINALYS IS KETONES [MASS/VOLU ME] IN URINE BY TEST STRIP NEGATIVE mg/dL 05/12 Specimen Type: URINE Comment: If Glucose = >500 and Ketones are positive, please alert the Physician. Ordering Provider: ARCADIO ALVARENGA Report Released Date/Time: May 08, 2023 08:52 AM Reporting Lab: [facility] [place] [facility] [address] [address] Performing Lab: [facility] [place] [facility] [address] [address] [facility] [place] [facility] URINALYS IS ERYTHROCYT ES [PRESENCE] IN URINE SEDIMENT BY LIGHT MICROSCOPY NEGATIVE mg/dL 05/12 Specimen Type: URINE Comment: If Glucose = >500 and Ketones are positive, please alert the Physician. Ordering Provider: ARCADIO ALVARENGA Report Released Date/Time: May 08, 2023 08:52 AM Reporting [facility]: [facility] [place] [facility] [address] [address] Performing Lab: [facility] [place] [facility] [address] [address] [facility] [place] [facility] URINALYS IS PROTEIN [MASS/VOLU ME] IN URINE BY TEST STRIP NEGATIVE mg/dL 05/12 Specimen Type: URINE Comment: If Glucose = >500 and Ketones are positive, please alert the Physician. Ordering Provider: ARCADIO ALVARENGA Report Released Date/Time: May 08, 2023 08:52 AM Reporting Lab: [facility] [place] [facility] [address] [address] Performing Lab: [facility] [place] [facility] [address] [address] [facility] [place] [facility] URINALYS IS NITRITE [PRESENCE] IN URINE NEGATIVE mg/dL 05/12 Specimen Type: URINE Comment: If Glucose = >500 and Ketones are positive, please alert the Physician. Ordering Provider: ARCADIO ALVARENGA Report Released Date/Time: May 08, 2023 08:52 AM Reporting Lab: [facility] [place] [facility] [address] [address] Performing Lab: [facility] [place] [facility] [address] [address] [facility] [place] [facility] URINALYS IS BILIRUBIN. TOTAL [PRESENCE] IN URINE NEGATIVE mg/dL 05/12 Specimen Type: URINE Comment: If Glucose = >500 and Ketones are positive, please alert the Physician. Ordering Provider: ARCADIO ALVARENGA Report Released Date/Time: May 08, 2023 08:52 AM Reporting Lab: [facility] [place] [facility] [address] [address] Performing Lab: [facility] [place] [facility] [address] [address] [facility] [place] [facility] URINALYS IS SPECIFIC GRAVITY OF URINE BY REFRACTOME TRY 1.015 1.016 - 1.022 05/12 L Specimen Type: URINE Comment: If Glucose = >500 and Ketones are positive, please alert the Physician. Ordering Provider: ARCADIO ALVARENGA Report Released Date/Time: May 08, 2023 08:52 AM Reporting Lab: [facility] [place] [facility] [address] [address] Performing Lab: [facility]DRENUSE[address] [address] [facility] [place] [facility] URINALYS IS PH OF URINE BY TEST STRIP 6.5 5.0 - 9.0 05/12 Specimen Type: URINE Comment: If Glucose = >500 and Ketones are positive, please alert the Physician. Ordering Provider: ARCADIO ALVARENGA Report Released Date/Time: May 08, 2023 08:52 AM Reporting Lab: [facility] [place] [address] [address] Performing Lab: [facility] [place] [address] [address] [facility] [place] [facility] URINALYS IS UROBILINOG EN [MASS/VOLU ME] IN URINE BY TEST STRIP <2.0mg/d L <2.0 - 2.0 05/12 Specimen Type: URINE Comment: If Glucose = >500 and Ketones are positive, please alert the Physician. Ordering Provider: ARCADIO ALVARENGA Report Released Date/Time: May 08, 2023 08:52 AM Reporting Lab: [facility] [place] [facility] [address] [address] Performing Lab: [facility] [address] [address] [facility] [place] [facility] URINALYS IS LEUKOCYTE ESTERASE [PRESENCE] IN URINE BY TEST STRIP NEGATIVE 05/12 Specimen Type: URINE Comment: If Glucose = >500 and Ketones are positive, please alert the Physician. Ordering Provider: ARCADIO ALVARENGA Report Released Date/Time: May 08, 2023 08:52 AM Reporting Lab: [facility] [address] [address] Performing Lab: [place] [facility] [facility] [address] [address] [place] [facility] [facility] Encounters Combined list of: 1) Encounters from Department of [facility] Affairs facilities going back up to thelast 18 months. 2) Encounters from the Department of [employer] facilities going back up to 280 months. Location Location Details Encounter Type Encounter Number Reason For Visit Attending Provider ADM Date DC Date Status Disposition Source [place] [facility] [facility] Outpatient Encounter [id number] 05/08 [place] [facility] [facility] [place] [facility] Outpatient Encounter [id number] 05/08 [place] [facility] OFFICE O/P EST SF 10-19 MIN [id number] Diagnos is: ICD-10- CM G47.33 Obstruc tive sleep apnea (adult) (pediat dilip)
VARUN CRAWLEY 05/11 [facility] [place] [place] [facility] Outpatient Encounter [id number] 05/15 [place] [facility] OFF[facility] O/P EST MOD 30-39 MIN [id number] Diagnos is: ICD-10- CM I10 Essenti al (primar y) hyperte nsion<b r/> Lucille ALVARENGA 05/17 [place] [facility] [facility] Outpatient Encounter [id number] 05[place]24 [facility] [place] [facility] [facility] [place] En[facility] [id number] 05/31 [facility] [place] [facility] [facility] [place] [facility] En[facility] [id number] 06/06 [facility] [place] [facility] [facility] [place] [facility] HEARING AID FITTING/CH ECKING [id number] Diagnos is: ICD-10- CM H90.3 Sensori neural hearing loss, bilater al
Rigo HUIZAR 06/21 [facility] [place] [facility] [facility] [place] En[facility] [id number] 06/21 [facility] [place] [facility] [facility] [place] EYE EXAM&TX ESTAB PT /VST [id number] Diagnos is: ICD-10- CM H25.813 Combine d forms of age-rel ated catarac t, bilater al
MERDILSHAD,JIMY H B 07/18 [facility] [place] [facility] [facility] [place] [facility] HEARING SERVICE [id number] Diagnos is: ICD-10- CM Z46.1 Encount er for fitting and adjustm ent of hearing aid<br/ > Rigo HUIZAR 07/25 [facility] [place] [facility] [facility] [place] [facility] FIT SPECTACLES MULTIFOCAL [id number] Diagnos is: ICD-10- CM Z46.0 Encount er for fit/adj st of spectac les and contact lenses< br/> VANESSA ZAVALA 10/04 [facility] [place] [facility] [facility] [place] En[facility] [id number] 10/17 [facility] [place] [facility] [facility] [place] En[facility] [id number] [facility] [place] [facility] [facility] [place] [facility] En[facility] [id number] 10/30 [facility] [place] [facility] [facility] [place] [facility] En[facility] [id number] 11/06 [facility] [place] [facility] [facility] [place] [facility] COLLJ & INTERPJ DATA EA 30 D [id number] Diagnos is: ICD-10- CM G47.39 Other sleep apnea<b r/> ABBI FANG 11/20 [facility] [place] [facility] [facility] [place] [facility] En[facility] [id number] 12/20 [facility] [place] [facility] [place] [facility] En[facility] [id number] 12/21 [facility] [place] [facility] [facility] [place] [facility] En[facility] [id number] 12/24 [facility] [place] [facility] [facility] [place] En[facility] [id number] 12/24 [facility] [place] [facility] [facility] [place] [facility] En[facility] [id number] 02/01 [facility] [place] [facility] [place] En[facility] [id number] 03/05 [facility] [place] [facility] [facility] [place] En[facility] [id number] 03/05 [facility] [place] [facility] [facility] [place] En[facility] [id number] 03/07 [facility] [place] [facility] [facility] [place] En[facility] [id number] 03/20 [facility] [place] [facility] [facility] [place] En[facility] [id number] 03/26 [facility] [place] [facility] [facility] [place] En[facility] [id number] 04/15 [facility] [place] [facility] [facility] [place] [facility] En[facility] [id number] 04/25 [facility] [place] [facility] [facility] EST SF 10 MIN [id number] Diagnos is: ICD-10- CM G47.33 Obstruc tive sleep apnea (adult) (pediat dilip)
VARUN CRAWLEY 05/16 [facility] [place] [facility] COMPRE OPH EXAM EST PT 1/> [id number] Diagnos is: ICD-10- CM H34.212 Partial retinal artery occlusi on, left eye<br/ > TANIAJIMY H B 05/22 [facility] [place] [facility] [facility] [place] En[facility] [id number] 06/25 [facility] [place] [facility] [facility] [place] [facility] En[facility] [id number] 06/[place] [facility] [place] [facility] PRO PHONE CALL 5-10 MIN [id number] Diagnos is: ICD-10- CM Z12.11 Encount er for screeni ng for maligna nt neoplas m of colon<b r/> BROWN,KAVYA SHA 06/26 [place] [facility] [place] [facility] Outpatient Encounter [id number] 07/31 [place] [facility] [place] [facility] [facility] Outpatient Encounter [id number] 09/24 [place] [facility] [place] [facility] [facility] Outpatient Encounter [id number] 09/24 [place] [facility] [place] [facility] Social History Combined list of available smoking, tobacco, and other social history from Department of Defense and Veterans Affairs facilities. Social History Type Response Date Comment Source Tobacco smoking status [facility] 2001-TOBACCO NEVER USED 05/17/2023 [place] of [place] use [place] 11/23/2021 [place] of [place] use [place] 15 YRS OR MORE 07/15/2020 [place] of [place] use [place] FORMER US[place] 07/04/2018 [place] History of tobacco use QUIT TOBACCO USE > 7 YEARS AGO 09/19/2017 quit > 20 yrs ago [place] [facility] [place] [facility]
--- OUTSIDE RECORDS SUMMARY | 2024-10-02 09:50 | XMS_ITS ---
Author Name [facility] [place] [facility] [place] [facility] [place] Address [address] [facility], [place] [address] Care Team Providers Care Billiard Table Repairer Name Role Phone RACHELE RODRIGUEZ Primary Care [...] Name Patient's Relationship to Policy Gutierrez MADALYN [facility] (WNR) MEDICARE ADVANTAGE MCR (WNR) Aug 28, 2018 [id number] [phone] GERSON BRIGGS PATIENT [facility] (WNR) MEDICARE ADVANTAGE MCR (WNR) Aug 28, 2018 [id number] GERSON BRIGGS PATIENT Selected Encounter This section includes the information on record at [place] for the Encounter. Date/Time Encounter Type Encounter Description Reason Pro vider Source Oct 31, 2023 01:03 PM Outpatient Encounter ADMIN PAT ACTIVTIES (MASNONCT) IHE Encounter Template Text not used by [place] Plan of Treatment: Future Appointments (+ 6 months) and Future Tests (+/- 45 days) The Plan of Treatment section includes future care activities for the patient from all VA treatmentfacilities. This section includes future appointments and future orders which are active, pending or scheduled. Future Appointments This section includes appointments that were scheduled to occur 6 months from the date of the Encounter, up to a maximum of 20 appointments. The data comes from all [facility]. Appointment Date/Time Appointment Type Appointme nt Facility Name Nov 07, 2023 08:30 AM [facility]BULATORY - [facility] Dec 25, 2023 08:45 AM [facility]ATORY - [facility] Apr 15, 2024 10:30 AM [facility]ATORY - [facility] Apr 25, 2024 08:00 AM [facility]ULATORY - [facility] Active, Pending, and Scheduled Orders This section includes a listing of several types of active, pending, and scheduled orders, including clinic medications orders, diagnostic test orders, procedure orders and consult orders; where the start date of the order is 45 days before the date of the Encounter or 45 days after the date of theEncounter. The data comes from all [facility]. Test Date/Time Test Type Test Details Facility Name Nov 15, 2023 12:00 AM Laboratory - Chemistry Order MAGNESIUM BLOOD (SST-SERUM) [facility] Nov 15, 2023 12:00 AM Laboratory - Chemistry Order FOLATE BLOOD (SST-SERUM) [facility] Nov 15, 2023 12:00 AM Laboratory - Chemistry Order BASIC METABOLIC PANEL (fasting) BLOOD (SST-SERUM) [facility] Nov 15, 2023 12:00 AM Laboratory - Chemistry Order LIPID PANEL FASTING BLOOD (SST-SERUM) [facility] Nov 15, 2023 12:00 AM Laboratory - Chemistry Order LIVER FUNCTION BLOOD (SST-SERUM) [facility] Nov 15, 2023 12:00 AM Laboratory - Chemistry Order CBC AND DIFF (AUTO) BLOOD (LAV-BLOOD) [facility] Nov 15, 2023 12:00 AM Laboratory - Chemistry Order HEMOGLOBIN A1C PANEL BLOOD (LAV-BLOOD) [facility] Nov 15, 2023 12:00 AM Laboratory - Chemistry Order TSH BLOOD (SST-SERUM) SP [facility] Social History: Smoking Status (Most current) and Tobacco Use (All prior to encounter date) This section includes the most current, and the historical, smoking and tobacco- related health factors from the [place] facility where the Encounter took place. Current Smoking Status This section includes the most current smoking, or tobacco-related health factor, from the [place] facility where the Encounter took place. Date/Time Current Smoking Status Comment Facility Sep 19, 2017 10:41 AM QUIT TOBACCO USE > 7 YEARS AGO quit > 20 yrs ago [facility] Encounter Notes: All associated encounter notes This section contains the clinical notes associated to the Encounter. Date/Time Encounter Note(s) Provider Source Oct 31, 2023 01:03 PM PHARMACY NOTE: LOCAL TITLE: PHARMACY CUSTOMER CARE MEDICATION RENEWAL STANDARD TITLE: PHARMACY NOTE DATE OF NOTE: OCT 31, 2023@13:03 ENTRY DATE: OCT 31, 2023@13:03:57 AUTHOR: RAFAEL GARCIA EXP COSIGNER: URGENCY: STATUS: COMPLETED Date: Oct Division: [place] Pt referred by Pharmacy Call Center for medication renewal: Non-controlled/maintenanc e medication Medications requested: [id number] EZETIMIBE 10MG TAB Defer to primary care provider To be mailed . Please review and renew if appropriate. *This note was generated by [facility] Pharmacy Customer Care. If you have any questions or need assistance, do not contact this author. Please refer all questions to your local, on-site pharmacy departments. /yumi/ RAFAEL GARCIA CPhT SUPERANNUATION FUNDS MANAGER, [facility]/PHARMACY CUSTOMER CARE Signed: 10/31/2023 13:04 Receipt Acknowledged By: 10/31/2023 13:17 /es/ PAU ALVARENGA MD PHYSICIAN 10/31/2023 13:31 /yumi/ AUSTYN TURNERN,RN-BC REGISTERED NURSE (RN) RAFAEL GARCIA [facility]
--- OUTSIDE RECORDS SUMMARY | 2024-10-02 09:51 | XMS_ITS ---
Author Name [facility] [place] [facility] [place] [facility] [place] Address [address] [place] [address] Care Team Providers Care Pyrotechnist Name Role Phone RACHELE RODRIGUEZ Primary Care [...] Name Patient's Relationship to Policy Gutierrez MADALYN [facility] (WNR) MEDICARE ADVANTAGE MCR ([facility]) Aug 28, 2018 [id number] GERSON BRIGGS PATIENT [facility] (WNR) MEDICARE ADVANTAGE MCR ([facility]) Aug 28, 2018 [id number] GERSON BRIGGS PATIENT Selected Encounter This section includes the information on record at [place] for the Encounter. Date/Time Encounter Type Encounter Description Reason Pro vider Source Sep 24, 2024 03:08 PM Outpatient Encounter OPTOMETRY IHE Encounter Template Text not used by VA Social History: Smoking Status (Most current) and Tobacco Use (All prior to encounter date) This section includes the most current, and the historical, smoking and tobacco- related health factors from the [place] facility where the Encounter took place. Current Smoking Status This section includes the most current smoking, or tobacco-related health factor, from the [place] facility where the Encounter took place. Date/Time Current Smoking Status Comment Facility Sep 19, 2017 10:41 AM QUIT TOBACCO USE > 7 YEARS AGO quit > 20 yrs ago [facility] Encounter Notes: All associated encounter notes This section contains the clinical notes associated to the Encounter. Date/Time Encounter Note(s) Provider Source Sep 24, 2024 03:10 PM OPTOMETRY NOTE: LOCAL TITLE: OPTOMETRY NOTE STANDARD TITLE: OPTOMETRY NOTE DATE OF NOTE: SEP 24, 2024@15:10 ENTRY DATE: SEP 24, 2024@15:10:03 AUTHOR: HOA RADER EXP COSIGNER: URGENCY: STATUS: COMPLETED OPT HT ordered patient 1 time replacement pair of eyeglasses as requested d/t lost pair, unrepairable/not under warranty, or scratched lenses. /yumi/ HOA RADER OPTOMETRY TECH Signed: 09/24/2024 15:10 HOA RADER [facility]
--- OUTSIDE RECORDS SUMMARY | 2024-10-02 09:51 | XMS_ITS | Continuity of Care Document ---
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) MDM MODERATE MUST MEET 2 OUT OF 3 ELEMENTS: PROBLEMS, DATA OR RISK ELEMENT 1: PROBLEMS ADDRESSED 1 OR MORE CHRONIC ILLNESS WITH EXACERBATION OR 2 OR MORE STABLE CHRONIC ILLNESSES OR 1 UNDIAGNOSED NEW PROBLEM OR 1 ACUTE ILLNESS W/SYMPTOMS OR 1 ACUTE COMPLICATED INJURY ELEMENT 2: DATA MUST MEET 1 OF 3 CATEGORIES CATEGORY 1: REVIEW OF PRIOR EXTERNAL NOTES, REVIEW OF RESULTS, ORDERING OF EACH TEST, ASSESSMENT REQUIRING INDEPENDENT HISTORIAN OR CATEGORY 2: INDEPENDENT INTERPRETATION OF TESTS BY ANOTHER PHYSICIAN OR SPECIALIST OR CATEGORY 3: DISCUSSION OF MGT OR TEST INTERPRETATION W/EXTERNAL PHYSICIAN OR SPECIALIST ELEMENT 3: RISK RISK OF COMPLICATIONS AND/OR MORBIDITY OR MORTALITY OF PATIENT MANAGEMENT PROVIDER MUST THOROUGHLY DOCUMENT EACH ELEMENT THAT IS COVERED Not available 09/03/2024 15:43:12 Plan of Treatment Reminders Order Date Submit Date Provider Last Modified By Organization Details Last Modified Time Details Appointments MEDICARE ANNUAL WELLNESS 2025 09:00A M DR KENT Not available Not available Not available Lab lipid panel, blood 2024 025 [facility], [address] [place] [address], [place], [address], 09/03/2024 16:00:31 CMP, serum or plasma 2024 025 [facility], [address] [place] [address], [place], [address], 09/03/2024 16:00:31 CBC 2024 025 [facility], [address], [place], [address], 09/03/2024 16:00:31 PSA, serum or plasma 2024 025 [facility], [address], [place], [address], 09/03/2024 16:00:31 Referral None recorded. Procedures None recorded. Surgeries None recorded. Imaging None recorded. Medication Orders ciproflox acin 500 mg tablet 2024 [id number], [address] [facility], [place], [address], 09/03/2024 15:44:58 Patient TargetsNo targets recorded. Patient Instructions Encounter Date Encounter Id Patient Instructions Last Modified By Organization Details Last Modified Time 09/03/2024 [id number] Acute Sinusitis: Care Instructions Not available 09/03/2024 15:44:55 Reason for Referral None Reported. Problems Name Problem SNOMED Code Status Onset Date Resolution Date Notes Provider Name and Address Organization Details Recorded Time Myocardi al infarcti on 16557408 Active 2023 one stent placed > [facility] Cardiolog y SHRUTI Kelley [address] [place] [address], [address], [facility] 4 10:35:37 Osteoart hritis 489461398 Active 2023 SHRUTI WADE [address] [place], [address], [facility] 4 10:36:07 Degenera tion of lumbar interver tebral disc 73815388 Active 2023 SHRUTI WADE [address] [place], [address], [facility] 4 10:37:40 Gastroes ophageal reflux disease 160154511 Active 2023 SHRUTI WADE [address] [place], [address], [facility] 4 10:50:00 Allergic reaction to drug 572763363 Active 2023 SHRUTI WADE [address] [place], [address], [facility] Internal [facility] 4 11:01:28 Acute sinusiti s 87459484 Active 2024 Brayan Kent, [address] [place], [address], [facility] 5 15:39:41 [facility] hyperten becca 32440671 Active 2017 [facility] 8 08:22:26 Hypercho lesterol emia 48230457 Active 2017 [facility] 8 08:22:43 History of male erectile disorder 661588425 Active 2017 Marlinmelissa Vallecillo [facility] 8 08:23:08 Coronary arterios clerosis 60046731 Active 2017 Marlinmelissa Vallecillo [facility] 8 08:23:20 Problem Notes None recorded. Procedures Surgical History Date Name Laterality Status Provider Name and Address Organization Details Recorded Time total replacement of hip completed SHRUTI WADE [address] [place] [address], [address], [facility] 10/06/2023 10:44:37 appendectomy completed SHRUTI WADE [address] [place] [address], [address], [facility] 10/06/2023 10:49:20 repair of umbilical hernia completed SHRUTI WADE [address] [place] [address], [address], [facility] 10/06/2023 10:49:41 repair of inguinal hernia completed SHRUTI WADE [address] [place] [address], [address], [facility] 10/06/2023 10:49:48 Imaging Results None recorded. Procedure Notes None recorded. Medical Equipment None Reported. Allergies Allergen ID Allergen Name Allergen Category Reaction Reaction Severity Criticality Documentation Date Start Date Code Code System Note Provider Name and Address Organization Details Recorded Time 1416 Product containin g penicilli n and antibioti c (product) medicatio n hives moderate Not available 01/16/2018 64269 05 SNOMED Marlin Avel teresa [facility] 8 08:21:14 7929 ezetimibe medicatio n diarrhea headache muscle cramps moderate moderate severe high 11/27/2023 78989 8 RxNorm Crystal Ryanmond teresa [facility] 4 10:43:24 Medications Name Sig Start Date Stop Date Status Note LastModified by Organization Details LastModified Time atorvastati n 40 mg tablet TAKE ONE TABLET 10/06 completed Not Available Not Available Not Available atorvastati n 80 mg tablet Take 1 tablet every day by oral route. active Not Available Not Available No t Available clindamycin HCl 300 mg capsule TAKE ONE CAP PRIOR TO DENTAL APPT 09/03 completed Not Available Not Available Not Available azithromyci n 250 mg tablet 01/16 completed Not Available Not Available Not Available metoprolol succinate ER 100 mg tablet,exte nded release 24 hr TAKE ONE TABLET QD PO active Not Available Not Available No t Available ciprofloxac in 500 mg tablet TAKE 1 TABLET BY MOUTH EVERY 12 HOURS FOR 10 DAYS active Not Available Not Available No t Available valsartan 320 mg tablet Take 1 tablet every day by oral route. active Not Available Not Available No t Available Viagra 100 mg tablet Take 1 tablet every day by oral route as needed. 2017 active Not Available Not Available Not Avai lable triamcinolo ne acetonide 0.1 % lotion 01/16 completed Not Available Not Available Not Available doxycycline hyclate 100 mg tablet TAKE 1 TABLET BY MOUTH TWICE A DAY FOR 10 DAYS *LIMIT SUN EXPOSURE WHILE ON THIS* active Not Available Not Available No t Available valsartan 40 mg tablet 10/06 completed Not Available Not Available Not Available ezetimibe 10 mg tablet Take 1 tablet every day by oral route. 11/26 completed Not Available Not Available Not Available Fluzone High-Dose 4955-9708 (PF) 180 mcg/0.5 mL intramuscul ar syringe 01/16 completed Not Available Not Available Not Available aspirin 81 mg capsule Take 1 capsule every day by oral route. active Not Available Not Available No t Available Vitals Date Recorded Body height Body mass index (BMI) Body weight Heart rate Oxygen saturation Oxygen saturation in Arterial blood by Pulse oximetry Systolic blood pressure Diastolic blood pressure Provider Name and Address Organization Details Last Updated DateTime 5 187.96 cm 25.5 kg/m2 33892.8 8 g 55 /min 97 % 97 % 150 mm[Hg] 90 mm[Hg] Crystal Garcia [facility] 5 15:08:54 Social History Question Answer Notes LastModified by Organizat ion Details LastModified Time Tobacco Smoking Status Former Smoker Marlin Londonoria moore [facility] 01/16/2018 11:18:20 What Is Your Occupation? Retired [email or web address] Information not available 01/16/2018 What Was The Date Of Your Most Recent Tobacco Screening? 09/03/2024 [email or web address] Information not available 09/03/2024 Do You Or Have You Ever Used Any Other Forms Of Tobacco Or Nicotine? No [email or web address] Information not available 10/06/2023 Sex: Unknown Functional Status None recorded. Mental Status None recorded. Family History Relationship Description Onset Age of this Age Resolved Age Notes LastModified by Organization Details LastModified Time Sister Malignant melanoma [email or web address] Not available 2023 10:44:09 Medical History No medical history recorded. Immunizations Vaccine Type Date Status Note Provider Nam e and Address Organization Details Recorded Time pneumococcal, unspecified formulation 07/04/2018 completed Contreras moore [facility] 11/24/2023 13:55:08 zoster recombinant 06/10/2018 kenji moore [place] Enrique [facility] 11/24/2023 13:56:41 Td(adult) unspecified formulation 03/04/2021 kenji moore [facility] 11/24/2023 13:57:20 Past Encounters Encounter ID Performer Location Encounter Start Date Encounter Closed Date Diagnosis/Indication Diagnosis SNOMED-CT Code Diagnosis ICD10 Code Diagnosis Note [id number] DO Laila Gu[facility] [address] [facility],[place] [address] 09/03/2024 14:56:27 09/03/2024 15:51:16 Essential hypertension 58180363 I10 stable no issues Hypercholesterolemia 136 81329 E78.2 will rechk Acute sinusitis 26887177 J01.90 Health Concerns Section Related Observation LastModified by Organization Detai ls LastModified Time None Recorded Concern Status LastModified by Organization Details LastModified Time None Recorded Payers Encounter Date Sequence Insurance Name Policy Number Policy Gutierrez Covered Member ID Gutierrez Member ID Guarantor Name 09/03/2024 1 [facility] MED[place] BLUE (MEDICARE REPLACEMENT PPO) [id number] Ed Downing [id number] Ed Downing Notes Date Note Type Note Provider Name and Address Organization Details Recorded Time 5 text/htm l Care Management - HypertensionReported bypatient.Self Care:not under emotional stress Severity:symptoms are improving; does not interfere with daily activities Associated Symptoms:no dizziness; no lightheadedness; no chest pain; no shortness of breath; no palpitations; no edema; no calf muscle cramps; no blurred vision; no confusion; no headaches; no fatigue having sinus symptoms for weeks with coughand discharge and has finally went to and had been given doxuy on for 5 days and intially was better but now is getting worse again despite the abx Brayan Kent DO [address] [place], [address], [facility] 09/03/2024 15:49:38
--- OUTSIDE RECORDS SUMMARY | 2024-10-02 09:51 | XMS_ITS ---
Author Name [facility] [place] [facility] Address [address] [place] [address] Care Team Providers Care Medical Review Specialist Name Role Phone RACHELE RODRIGUEZ Primary Care [...] Name Patient's Relationship to Policy Gutierrez [facility]AD[facility]YN [facility] (WNR) MEDICARE ADVANTAGE MCR ([facility]) Aug 28, 2018 [id number] GERSON BRIGGS PATIENT [facility] (WNR) MEDICARE ADVANTAGE MCR ([facility]) Aug 28, 2018 [id number] GERSON BRIGGS PATIENT Selected Encounter This section includes the information on record at [place] for the Encounter. Date/Time Encounter Type Encounter Description Reason Pro vider Source Sep 24, 2024 01:00 PM Outpatient Encounter OPTOMETRY IHE Encounter Template Text not used by VA Social History: Smoking Status (Most current) and Tobacco Use (All prior to encounter date) This section includes the most current, and the historical, smoking and tobacco- related health factors from the [place] facility where the Encounter took place. Current Smoking Status This section includes the most current smoking, or tobacco-related health factor, from the [place] facility where the Encounter took place. Date/Time Current Smoking Status Comment Facility Sep 19, 2017 10:41 AM QUIT TOBACCO USE > 7 YEARS AGO quit > 20 yrs ago [facility] Encounter Notes: All associated encounter notes This section contains the clinical notes associated to the Encounter. Date/Time Encounter Note(s) Provider Source Sep 24, 2024 01:00 PM TELEPHONE ENCOUNTE R NOTE: LOCAL TITLE: TELEPHONE NOTE/SPECIALTY CLINIC STANDARD TITLE: TELEPHONE ENCOUNTER NOTE DATE OF NOTE: SEP 24, 2024@13:00 ENTRY DATE: SEP 24, 2024@13:00:52 AUTHOR: TINO ROBERT EXP COSIGNER: URGENCY: STATUS: COMPLETED vet left vm on sc line stating he lost his glasses and would like a replacement pair ordered. forwarding to OPT STAFF to process. /yumi/ TINO ROBERT ADVANCED CLERK CASHIER Signed: 09/24/2024 13:02 Receipt Acknowledged By: 09/24/2024 15:10 /es/ HOA RADER OPTOMETRY TECH 09/24/2024 15:51 /es/ GRISELDA QUICK [facility] TECHINICIAN 09/24/2024 15:20 /es/ Gia Torres Optometry Health Ring Rolling Machine Operator TINO ROBERT [facility]
--- OUTSIDE RECORDS SUMMARY | 2024-10-02 09:51 | XMS_ITS | Encounter Summary ---
Author Organization [facility] Address [address] [place] [address] Care Team Providers Care Mine Car Dispatcher Name Role Phone Brayan Sosa DO Primary Care Provider [phone] Encounter Details Date Type Department Care Team (Late st Contact Info) Description 09/27/2024 Telephone [facility] [address] [place] [id number] Eliud Massey MD [address] [place] [address] [address] [place], [place] [id number] Social History Tobacco Use Types Packs/Day Years Used Date Smoking Tobacco: Former Cigarettes Q uit: 08/28/1989 Smokeless Tobacco: Never Alcohol Use Standard Drinks/Week Comments Not Currently 0 (1 standard drink = 0.6 oz pur e alcohol) Sex and Gender Information Value Date Recorded Sex Assigned at Not on file Gender Identity Not on file Sexual Orientation Not on file documented as of this encounter Ordered Prescriptions Prescription Sig Dispensed Refills Start Date End Da te valsartan (DIOVAN) 320 mg tablet Take 1 tablet (320 mg total) by mouth 1 (one) time each day. 90 each 1 09/27/2024 documented in this encounter Progress Notes * Nilam Nayak [place] - 09/27/2024 11:01 AM EST All set --thalia 04/15/24--labs done 10/20/23--reordered 07/01/24 * Johnathan Brooks - 09/27/2024 10:44 AM EST NAME:valsartan M TAKEN HOW OFTEN:once a day FILL FOR:90 days PHARMACY:[facility] on [address] [place] [address] NAME:Atorvastatin M TAKEN HOW OFTEN:once a day FILL FOR:90 days PHARMACY:[facility] on [address] [place] [address] documented in this encounter Plan of Treatment Not on file documented as of this encounter Visit Diagnoses Not on filedocumented in this encounter Discontinued Medications Medication Sig Discontinue Reason Start Date End Da te valsartan (DIOVAN) 320 mg tablet Take 1 tablet (320 mg total) by mouth 1 (one) time each day. Reorder 07/01/2024 09/27/2024 documented as of this encounter Care Teams Mine Car Dispatcher Relationship Specialty Start Date End Date Brayan Sosa DO [address] [place], [place] PCP - General Internal Medicine 07/23/24 documented as of this encounter
--- OUTSIDE RECORDS SUMMARY | 2024-10-02 09:51 | XMS_ITS | Data Portability ---
Author Organization [facility], Home Service Address [address] [place] [address] Assessment Encounter Date Assessment Date Assessment LastModified by Organization Details LastModified Time 09/03/2024 09/03/2024 [address] [place] [address] (DATA VISUALIZATION DEVELOPER) MDM MODERATE MUST MEET 2 OUT OF [...] Not available Not available Not available Lab EWA + rf (antinucl ear antibodie s + rheumatoi d factor), quantitat j carlos, serum 2017 018 [facility], [address] [place] [address], [place], [address], 01/22/2018 08:16:37 C-reactiv e protein, quantitat j carlos, serum or plasma 2017 018 [facility], [address] [place], [place] [address], [place], [address], 01/22/2018 08:16:37 ESR (erythroc yte sedimenta tion rate), blood 2017 018 [facility], [address] [place] [address], [id number], 01/22/2018 08:16:37 lipid panel, blood 2023 024 [facility], [address] [place] [address], [id number], 10/23/2023 11:33:58 CMP, serum or plasma 2023 024 [facility], [address] [place] [address], [id number], 10/23/2023 11:33:57 PSA, serum or plasma 2023 024 [facility], [address] [place] [address], [id number], 10/23/2023 11:33:58 CBC w/ auto diff 2023 024 [facility], [address] [place] [address], [id number], 10/23/2023 11:33:58 lipid panel, blood 2024 025 [facility], [address] [place] [address], [id number], 09/03/2024 16:00:31 CMP, serum or plasma 2024 025 [facility], [address] [place] [address], [id number], 09/03/2024 16:00:31 CBC 2024 025 [facility], [address] [place] [address], [id number], 09/03/2024 16:00:31 PSA, serum or plasma 2024 025 [facility], [address] [place] [address], [place], [address], 09/03/2024 16:00:31 Referral rheumatol ogist referral 2017 018 get Not available 03/20/2018 15:30:22 dermatolo gist referral 2017 018 get Nelson MD, [address], [place], [address], 03/20/2018 15:30:21 orthopedi c referral 2017 018 get Ramey MD, [address], [address], [place], [address], 02/21/2018 08:49:11 orthopedi c spine surgeon referral 2023 024 riaz Melendez MD, [address], [address], [place], [address], 10/09/2023 09:08:29 Procedures None recorded. Surgeries None recorded. Imaging None recorded. Medication Orders ciproflox acin 500 mg tablet 2024 025 [id number], [address] [facility], [place], [address], 09/03/2024 15:44:58 Patient TargetsNo targets recorded. Patient Instructions Encounter Date Encounter Id Patient Instructions Last Modified By Organization Details Last Modified Time 09/03/2024 [id number] Acute Sinusitis: Care Instructions Not available 09/03/2024 15:44:55 Reason for Referral Orthopedic Referral for Oste oarthritis of hip ready for left hip surgery, had right completed 11 years ago Referring Physician: Savannah Mims, Internal Medicine, Encounter Date: 01/16/2018 Translator Interpreter Referral for O n examination - rash present Referring Physician: Savannah Mims, Internal Medicine, Encounter Date: 01/16/2018 Jig And Fixture Builder Referral for Eczematized psoriasis psoriasis, multiple arthralgias, r/o psoriatic arthritis Referring Physician: Savannah Mims, Internal Medicine, Encounter Date: 01/16/2018 Orthopedic Spine Surgeon Ref erral for Degeneration of lumbar intervertebral disc chronic low back and neck pain, interested in injections Referring Physician: Teresita Alvarez, Internal Medicine, Encounter Date: 10/06/2023 Results Created Date Observation Date Name Description Value Unit Range Abnormal Flag Note LastModifiedBy Organization Detail LastModifiedTime Result Notes None recorded. Problems Name Problem SNOMED Code Status Onset Date Resolution Date Notes Provider Name and Address Organization Details Recorded Time Myocardi al infarcti on 60980770 Active 2023 [facility] SHRUTI Kelley [address] [place], [address], [facility] 4 10:35:37 Osteoart hritis 600552153 Active 2023 SHRUTI WADE [address] [place], [address], [facility] 4 10:36:07 Degenera tion of lumbar interver tebral disc 77201559 Active 2023 SHRUTI WADE [address] [place], [address], [facility] 4 10:37:40 Gastroes ophageal reflux disease 556884321 Active 2023 SHRUTI WADE [address] [place], [address], [facility] 4 10:50:00 Allergic reaction to drug 303248522 Active 2023 SHRUTI WADE [address] [place], [address], [facility] 4 11:01:28 Acute sinusiti s 70539874 Active 2024 Brayan Kent DO [address] [place], [address], [facility] 5 15:39:41 Esssusan l hyperten becca 62618353 Active 2017 [facility] 8 08:22:26 Hypercho lesterol emia 01206990 Active 2017 [place] [facility] 8 08:22:43 History of male erectile disorder 130136951 Active 2017 [facility] 8 08:23:08 Coronary arterios clerosis 60590459 Active 2017 [facility] 8 08:23:20 Problem Notes None recorded. Procedures Surgical History Date Name Laterality Status Provider Name and Address Organization Details Recorded Time total replacement of hip completed TERESITASHRUTI GOVEA [address] [place] [address], [address], [facility] 10/06/2023 10:44:37 appendectomy completed SHRUTI WADE [address] [place] [address], [address], [facility] 10/06/2023 10:49:20 repair of umbilical hernia completed SHRUTI WADE [address] [place] [address], [address], [facility] 10/06/2023 10:49:41 repair of inguinal hernia completed SHRUTI WADE [address] [place] [address], [address], [facility] 10/06/2023 10:49:48 Imaging Results None recorded. Procedure Notes None recorded. Medical Equipment None Reported. Allergies Allergen ID Allergen Name Allergen Category Reaction Reaction Severity Criticality Documentation Date Start Date Code Code System Note Provider Name and Address Organization Details Recorded Time 1416 Product containin g penicilli n and antibioti c (product) medicatio n hives moderate Not available 01/16/2018 42897 05 SNOMED [facility] 8 08:21:14 7929 ezetimibe medicatio n diarrhea headache muscle cramps moderate moderate severe high 11/27/2023 75464 8 RxNorm Crystal moore [place] - [facility] 4 10:43:24 Medications Name Sig [...] Available Not Available Not Available Fluzone High-Dose 0239-3228 (PF) 180 mcg/0.5 mL intramuscul ar syringe [...] and Address Organization Details Last Updated DateTime 4 180.34 cm 28.3 kg/m2 43597.2 5 g 70 /min 98 % 98 % 140 mm[Hg] 60 mm[Hg] Crystal Garcia [facility] Internal [facility] 4 10:30:51 Date Recorded Body height Body mass index (BMI) Body weight Heart rate Oxygen saturation Oxygen saturation in Arterial blood by Pulse oximetry Systolic blood pressure Diastolic blood pressure Provider Name and Address Organization Details Last Updated DateTime 4 180.34 cm 28.3 kg/m2 80458.2 5 g 62 /min 98 % 98 % 120 mm[Hg] 80 mm[Hg] Crystal Garcia [facility] 4 10:45:02 Date Recorded Body height Body mass index (BMI) Body weight Heart rate Respiratory rate Oxygen saturation Oxygen saturation in Arterial blood by Pulse oximetry Systolic blood pressure Diastolic blood pressure Provider Name and Address Organization Details Last Updated DateTime 4 187.96 cm 25.5 kg/m2 31455.8 8 g 74 /min 16 /min 99 % 99 % 128 mm[Hg] 82 mm[Hg] Ang Rodriguez [facility] Internal [facility] 4 14:53:42 Date Recorded Body height Body mass index (BMI) Body weight Heart rate Oxygen saturation Oxygen saturation in Arterial blood by Pulse oximetry Systolic blood pressure Diastolic blood pressure Provider Name and Address Organization Details Last Updated DateTime 5 187.96 cm 25.5 kg/m2 02033.8 8 g 55 /min 97 % 97 % 150 mm[Hg] 90 mm[Hg] Crystal [facility] Internal [facility] 5 15:08:54 Date Recorded Body weight Body mass index (BMI) Body height Heart rate Oxygen saturation Oxygen saturation in Arterial blood by Pulse oximetry Body temperature Systolic blood pressure Diastolic blood pressure Provider Name and Address Organization Details Last Updated DateTime 8 35644.3 3 g 27.8 kg/m2 182.25 cm 62 /min 97 % 97 % 98 [degF] 114 mm[Hg] 84 mm[Hg] Marlin Vallecillo [facility] 8 11:19:07 Social History Question Answer Notes LastModified by Organizat ion Details LastModified Time Tobacco Smoking Status Former Smoker Marlin Vallecillo teresa [facility] 01/16/2018 11:18:20 What Is Your Occupation? Retired [email or web address] Information not available 01/16/2018 What Was The Date Of Your Most Recent Tobacco Screening? 09/03/2024 [email or web address] Information not available 09/03/2024 Do You Or Have You Ever Used Any Other Forms Of Tobacco Or Nicotine? No [email or web address] Information not available 10/06/2023 Sex: Unknown Functional [...] pneumococcal, unspecified formulation 07/04/[address] [facility] 11/24/2023 13:55:08 zoster recombinant 06/10/[address] [facility] Internal [facility] 11/24/2023 13:56:41 Td(adult) unspecified formulation 03/04/2021 [facility] Contreras moore [facility] 11/24/2023 13:57:20 Past Encounters Encounter ID Performer Location Encounter Start Date Encounter Closed Date Diagnosis/Indication Diagnosis SNOMED-CT Code Diagnosis ICD10 Code Diagnosis Note [id number] Savannah Mims NP, S [facility] [address] [facility] [address] 01/16/2018 11:11:39 01/16/2018 11:40:14 Osteoarthritis of hip 243540050 M16.0 On examina tion - rash present 104970741 R21 Psoriasis 3778701 L40.9 Eczematized psoriasis 23 6731743 L40.8 Hypercholesterolemia 136 05644 E78.00 follow, dose decreased 2nd arthralgia s, may eventually return to higher dose, decrease made no change, await workup [id number] SHRUTI WADE [facility] [address] [facility] [place] [address] 10/06/2023 10:25:15 10/06/2023 16:28:34 Essential hypertension 04649992 I10 BP is fine todaymonit ored closely by cardiology after heart attack Hypercholesterolemia 136 67798 E78.2 monitored by cardiology Osteoarthritis 883585685 M15.0 will set up with [facility] Degenerati on of lumbar intervertebral disc 31521950 M51.36 will set up with [facility] for evaluation [id number] TERESITA ALVAREZ [facility] [address] [facility], [address] [facility] [place] [address] 11/27/2023 10:36:25 11/27/2023 11:41:09 Allergic reaction to drug 764549715 T50.905A noted in chart, will send note ot Dr. Malagon [id number] Brayan Kent [facility] [address] [facility] [place] [address] 12/26/2023 14:44:01 12/26/2023 15:47:01 Pre-surgery evaluation 774074493 Z01.818 Per the ACS NSQIP this patients cardiac risk stratif is considered low and he is cleared for the proposed eye surgerypat ient understand s to take his usual medication s except asa on the morning of his procedure Coronary arteriosclerosis 25261240 I25.10 completely asymptomat ic Essential hypertension 73379518 I10 stable no issues [id number] Brayan Kent [facility] Medicine [address] [facility], [address] [facility] [place] [address] 09/03/2024 14:56:27 09/03/2024 15:51:16 Essential hypertension 07689263 I10 stable no issues Hypercholesterolemia 136 46317 E78.2 will rechk Acute sinusitis 73137395 J01.90 Health Concerns Section Related Observation LastModified by Organization Detai ls LastModified Time None Recorded Concern Status LastModified by Organization Details LastModified Time None Recorded Advance Directives Directive None Recorded Payers Encounter Date Sequence Insurance Name Policy Number Policy Gutierrez Covered Member ID Gutierrez Member ID Guarantor Name 01/16/2018 1 [facility]: MEDICARE PPO BLUE (MEDICARE REPLACEMENT PPO) [id number] Ed Downing [id number] Ed Downing 10/06/2023 1 [facility]: MEDICARE PPO BLUE (MEDICARE REPLACEMENT PPO) [id number] Ed Downing [id number] Ed Downing 11/27/2023 1 [facility]: MEDICARE PPO BLUE (MEDICARE REPLACEMENT PPO) [id number] Ed Downing [id number] Ed Downing 12/26/2023 1 [facility]: MEDICARE PPO BLUE (MEDICARE REPLACEMENT PPO) [id number] Ed Downing [id number] Ed Downing 09/03/2024 1 [facility]: MEDICARE PPO BLUE (MEDICARE REPLACEMENT PPO) [id number] Ed Downing [id number] Ed Downing Notes Date Note Type Note Provider Name and Address Organization Details Recorded Time 8 text/htm l C/O worsening rash on hands (see previous notes ) tried vaseline, helped a little, tried (psoriasis medication ) minimal relief, just never goes away. No other areas rash Known hip arthritis bilat. had right hip replaced 11 years ago, now pain left hip severe Pain constant, uses tylenol 1300mg 2-3 X daily, rest helps with pain, lifting anything or riding on mower increases pain I hurt all over shoulders, back, knees Savannah Mims NP, S [address] [place], [address], [facility] 01/16/2018 11:49:26 4 text/htm l OBQ-Ln-srqxynoom allergy h/x correct in chart currently sees Dr. Massey for cardiology after his MIhas one stenthad recent echo of his heart with cardiology sees [place] doctor about once per yearsees indoor sports centre manager once per year at [facility] needs PSA screening, due for it has two hip replacementsthe patient is doing well with them hx of GERD, improved after dietary changes endoscope and colonoscopy were both good, had them done three years ago the patient reports that he has a history of a blood clot going to his left eye the patient is due to cataract surgery, bilaterally the patient is doing well otherwise, no questions sleeping okayeating okay needs to work on activity leveldoes get seasonal depression but otherwise his mood is stable currently , has children and grandchildren doing really welldo for lab work Dr. Pastor at [facility] TERESITA ALVAREZ, SHRUTI [address] [place], [address], [facility] 10/06/2023 10:58:19 4 text/htm l medication issues patient is in fact having issues with the ezetimibe, stated he developed msk cramps, stool changes, sinus pressure and nasal discharge, when he stopped it he felt great stated last time he didn't think it was related so he didn't bring it up, noted in allergy chart now suggested just using fish oil instead giving side effect profile of alternativeshe is also on atorvastatin as well which is good Dr. Malagon at [facility], will send note to him letting him know of the new allergy on this medication SHRUTI WADE [address] [place], [address], [facility] 11/27/2023 11:04:45 4 text/htm l Pre-OpReported bypatient.Risk Factorsno cognitive impairment; no functional impairment; no malnutrition; no frailty; able to climb a flight of stairs (exercise capacity>4 METS); no obstructive sleep apnea; non-smoker; no alcohol misuse; no illicit drug use; no chronic cardiopulmonary condition; not obese Anesthesia hx:no hx of anesthesia complications; no allergy to anesthetic agents; no family history of anesthesia complications Functional Ability:able to walk up stairs; able to perform heavy work around the house; no difficulty walking up hills; able to walk 4 mph Brayan Kent DO [address] [place], [address], [facility] 12/26/2023 15:15:55 5 text/htm l Care Management - HypertensionReported [...] despite the abx Brayan Kent DO [address] [facility] [place], [address], [facility] 09/03/2024 15:49:38
--- OUTSIDE RECORDS SUMMARY | 2024-10-02 09:51 | XMS_ITS | Clinical Summary ---
Author Organization [facility] Address [address] [place] [address] Phone Care Team Providers Care Lumber Racker Name Role Phone Brayan Sosa DO Primary Care Provider Medications Medication Sig Dispensed Refills Start Date End Date Status atorvastatin (LIPITOR) 80 mg tablet Take 1 tablet (80 mg total) by mouth 1 (one) time each day. 90 each 07/01/2024 Active metoprolol succinate (Toprol XL) 100 mg 24 hr tablet Take 1 tablet (100 mg total) by mouth 1 (one) time each day. Do not crush or chew. 90 each 3 07/01/2024 Active valsartan (DIOVAN) 320 mg tablet Take 1 tablet (320 mg total) by mouth 1 (one) time each day. 90 each 1 09/27/2024 Active valsartan (DIOVAN) 320 mg tablet Take 1 tablet (320 mg total) by mouth 1 (one) time each day. 90 each 07/01/2024 09/27/2024 Discontinued( Reorder) Encounters Date Type Department Care Team Description 09/27/2024 Telephone [facility] Cardiology [place] [address] [place] [address] Eliud Massey MD 08/06/2024 Telephone [facility] [address] [place] [address] Eliud Massey MD Lab Results (Lab result ) from Last 3 Months Social History Tobacco Use Types Packs/Day Years Used Date Smoking Tobacco: Former Cigarettes Q uit: 08/28/1989 Smokeless Tobacco: Never Alcohol Use Standard Drinks/Week Comments Not Currently 0 (1 standard drink = 0.6 oz pur e alcohol) Sex and Gender Information Value Date Recorded Sex Assigned at Not on file Gender Identity Not on file Sexual Orientation Not on file Obstetrics History Last Filed Vital Signs Vital Sign Reading Time Taken Comments Blood Pressure 110/80 04/15/2024 10:47 AM EDT Si tting L Arm Pulse 54 04/15/2024 10:47 AM EDT Temperature - - Respiratory Rate - - Oxygen Saturation - - Inhaled Oxygen Concentration - - Weight 88.5 kg (195 lb) 04/15/2024 10:47 AM EDT Height 188 cm (6' 2 ) 04/15/2024 10:47 AM EDT Body Mass Index 25.04 04/15/2024 10:47 AM EDT Plan of Treatment Health Maintenance Due Date Last Done Comments DTaP,Tdap,and Td Vaccines (1 - Tdap) 1968 Zoster Vaccines (1 of 2) 1999 Pneumococcal Vaccine: 65+ Ye ars (1 of 1 - PCV) 2014 Abdominal Aortic Aneurysm (A AA) Screen 08/06/2022 Cholesterol Screening (Lipid Panel) 08/06/2022 Colorectal Cancer Screening: Colonoscopy 08/06/2022 Depression Screening 08/06/2022 Falls Risk Assessment 08/06/2022 Hepatitis C Screening 08/06/2022 Social Influencers of Health Screening 08/06/2022 Hypertension/CHF/CAD Annual BMP Blood Test 08/07/2022 COVID-19 Vaccine (2023-2 5 season) 2024 Influenza Vaccine (#1) 2024 RSV Immunization Patients 60 + Years Old (1 - 1-dose 75+ series) 2024 HIB Vaccines Aged Out No longer eligi ble based on patient's age to complete this topic HPV Vaccines Aged Out No longer eligi ble based on patient's age to complete this topic Hepatitis A Vaccines Aged Out No long er eligible based on patient's age to complete this topic Hepatitis B Vaccines Aged Out No long er eligible based on patient's age to complete this topic IPV Vaccines Aged Out No longer eligi ble based on patient's age to complete this topic MMR Vaccines Aged Out No longer eligi ble based on patient's age to complete this topic Meningococcal ACWY Vaccine Aged Out N o longer eligible based on patient's age to complete this topic RSV Immunization Patients Un jay 20 months Aged Out No longer eligible b ased on patient's age to complete this topic Varicella Vaccines Aged Out No longer eligible based on patient's age to complete this topic Care Teams Lumber Racker Relationship Specialty Start Date End Date Brayan Sosa DO [address] [facility] [address] [place], [place] PCP - General Internal Medicine 07/23/24
[2024-10-02 10:52] LABS: MANUAL DIFF FLAG NO
[2024-10-02 11:01] LABS: Basophils Absolute Auto 0.1 X10*3/uL (0.0-0.2); Basophils Percent Auto 0.7 % (0-2); Eosinophils Absolute Auto 0.2 X10*3/uL (0.0-0.4); Eosinophils Percent Auto 2.5 % (0-4); Hematocrit 43.7 % (42.0-52.0); Hemoglobin 14.7 g/dl (14.0-18.0); Imm Gran Abs Auto 0.02 X10*3/uL (0.00-0.03); Imm Gran Pct Auto 0.3 % (0.0-0.4); Lymphocytes Absolute Auto 1.5 X10*3/uL (1.2-4.9); Lymphocytes Percent Auto 22.6 % (20-40); Mean Corpuscular HGB Conc 33.6 g/dl (31.0-36.0); Mean Corpuscular Hemoglobin 32.7 pg (27.0-33.0); Mean Corpuscular Volume 97.3 fL (80.0-98.0); Mean Platelet Volume 9.9 fL (9.4-12.4); Monocytes Absolute Auto 0.8 X10*3/uL (0.1-1.2); Monocytes Percent Auto 11.9 % (2-11); Neutrophils Absolute Auto 4.2 x10*3/uL (2.0-8.3); Platelet Count 184 X10*3/uL (160-400); Red Blood Count 4.49 X10*6/uL (4.60-5.80); Red Cell Distribution Width 12.7 % (11.0-16.0); White Blood Count 6.7 X10*3/uL (4.8-10.8)
[2024-10-02 11:20] LABS: Alanine Aminotransferase 32 U/L (0-40); Albumin Level 4.3 g/dL (3.5-5.0); Alkaline Phosphatase 74 U/L (39-117); Anion Gap 11 (12-20); Aspartate Amino Transferase 29 U/L (5-37); Bilirubin Total 0.7 mg/dL (0.0-1.0); Blood Urea Nitrogen 12 mg/dL (9-16); Calcium 8.9 mg/dL (8.4-10.2); Carbon Dioxide 28 mmol/L (22-29); Chloride 103 mmol/L (96-108); Cholesterol 144 mg/dL (<200); Estimated Glomerular Filt Rate > 60; Glucose Random 100 mg/dL (60-115); HDL Cholesterol 36 mg/dL (>40); LDL Cholesterol Calculated 81 mg/dL (<100); Potassium 4.6 mmol/L (3.3-5.1); Sodium 137 mmol/L (135-145); Total Protein 7.6 g/dL (6.5-8.0); Triglycerides 138 mg/dL (<150)
[2024-10-02 11:35] LABS: Prostate Specific Antigen 3.35 ng/mL (<0.05-4.0)
== END 2024-10-02 09:23 | disposition home or self-care (01) ==
LOC: HO.WFDLDS 09:22
PROVIDERS: Visit Provider Internal Medicine
DX: I10 Essential (primary) hypertension (principal); E78.2 Mixed hyperlipidemia; Z12.5 Encounter for screening for malignant neoplasm of prostate
CPT/HCPCS: 36415; 80053; 80061; 84153; 85025